=== PATIENT | female | born 1970 | race Caucasian/White ===

== ENCOUNTER 2016-11-17 20:25 | Emergency (ER) | payer OTHER ==
[2016-11-17 20:37] VITALS: BP 109/58; BMI 29.0
--- NOTE | 2016-11-17 20:42 | DR.HIP ---
HPI - Time Seen Time seen: 20:35 - Complaint Chief Complaint:: Patient states that she was pulling the hot tub, slipped and fell backward injurng her left hip and back. She complaines of right wrist pain and left wrist pain. Severety of 10/10, quality sharp, duration since accident today PMH - PMH Past Medical History: Anxiety, Arthritis, Depression, Hypothyroidism Past Surgical History: Yes Surgical History: Appendectomy, Cholecystectomy, Hysterectomy - Family History Family Medical History: Diabetes Mellitus, Cancer, [place], Coronary Artery Disease, Heart Failure, Hypertension - Social History Do you use any recreational Drugs:: No ROS - Review of Systems Eyes: No Symptoms Reported ENTM: No Symptoms Reported Respiratoy: No Symptoms Reported Cardiovascular: No Symptoms Reported PE - Vital Signs Vitals: Temperature 98.5 F Pulse Rate 72 Respiratory Rate 20 Blood Pressure [Right Arm] 119/60 Blood Pressure [Left Arm] 144/69 Blood Pressure 109/58 O2 Sat by Pulse Oximetry 94 - General Limitations: No Limitations General Appearance: Alert, In No Apparent Distress - Head Head Exam: Normal Inspection, Atraumatic - ENT ENT Exam: Normal Exam, Normal Oropharynx - Neck Neck Exam: Normal Inspection, Full ROM - Chest Chest Inspection: Normal Inspection - Respiratory Respiratory Exam: Normal Lung Sounds Bilat Respiratory Exam: Bilateral Clear to Auscultation - Cardiovascular Cardiovascular Exam: Regular Rate, Normal Rhythm - Abdominal Exam Abdominal Exam: Normal Inspection Abdominal Tenderness: negative: RUQ, RLQ, LUQ, LLQ, Epigastrium, Suprapubic, Diffuse, Mild, Moderate, Severe, Other - Extremities Extremities Exam: Normal Inspection, Full ROM - Lower Extremities Hip/Pelvis Exam: Normal Inspection, Tenderness (lefrt). negative: Deformity, Crepitus, Dislocation Upper Leg Exam: Normal Inspection Knee Exam: Normal Inspection Lower Leg Exam: Normal Inspection Ankle Exam: Normal Inspection Foot/Toe Exam: Normal Inspection Neurovascular/Tendon Exam: Normal Capillary Refill - Back Back Exam: Normal Inspection, Tenderness - Neurologic Neurological Exam: Alert, Oriented X3, CN II-XII Intact - Skin Skin Exam: Warm, Dry, Intact ROR - XRAY XRAY Interpreted by: Radiologist (CT C-spine;T-spine: Vertebral body heights are normal. Cervicothoracic junction and throacolumbar junctions are intact. There is minimal multilevel mild disk degenerative change and facet arthropathy. There is no cortical lucency or malalignment. Spinal canal is patent. Chest shows no acut4e abnormality. Chest No acute chest process CT Pelvis: Old healed right inferior pubic ramus fracture noted. There is minimal lower spine facet arthropathy. Minimal SI joint DJD noted. The hip joints are intact without cortical lucency or malalignment or malalignment. Minimal symphysis pubis DJD seen. Soft tissues of the deep pelvis are grossly normal, within limits of a noncontrast study. Venous varices are seen in the anterior abdominal wall. Minimal vascular calcification noted. Impression: No acute pelvis or left hip fracture. Old right inferior pubic ramus fracture and other findings as above.) - Diagnosis Discharge Problem: Fall Qualifiers: Encounter type: initial encounter Qualified Code(s): W19.XXXA - Unspecified fall, initial encounter - Discharge Plan Condition: Stable - Follow ups/Referrals Follow ups/Referrals: Jovanna Taylor [Primary Care Provider] - 3 days - Instructions
--- NOTE | 2016-11-17 21:28 | CT ---
CT thoracic spine without contrast Indication: Left hip pain after fall. Back pain. Technique: Helical images through the thoracic spine without contrast. Coronal and sagittal reformat s provided. Findings: Vertebral body heights are normal. Cervicothoracic junction and thoracolumbar junctions ar e intact. There is minimal multilevel mild disk degenerative change and facet arthropathy. There is no cortical lucency or malalignment. Spinal canal is patent. Limited images through the soft tissues of the abdomen show minimal aortic plaque. Limited images th rough the soft tissues of the chest shows no acute abnormality. Impression: No acute chest process. Reported By:
--- NOTE | 2016-11-17 21:30 | CT ---
CT pelvis without contrast. Indication: Left hip pain after fall. Technique: Helical images through the pelvis without contrast. Coronal and sagittal reformats provid ed. Findings: Old healed right inferior pubic ramus fracture noted. There is minimal lower lumbar spine facet arthropathy. Minimal SI joint DJD noted. The hip joints are intact without cortical lucency or malalignment. Minimal symphysis pubis DJD seen. Soft tissues of the deep pelvis are grossly normal, within limits of a noncontrast study. Venous varices are seen in the anterior abdominal wall. Minim al vascular calcifications noted. Impression: 1. No acute pelvis or left hip fracture. 2. Old right inferior pubic ramus fracture and other findings as above. Reported By:
== END 2016-11-17 22:18 | disposition home or self-care (01) ==
LOC: ER 20:25
DX: M25.551 Pain in right hip (principal); W19.XXXA Unspecified fall, initial encounter
CPT/HCPCS: 72128; 73700; 99282

== ENCOUNTER 2017-01-09 07:58 | Emergency (ER) | payer OTHER ==
[2017-01-09 08:05] VITALS: BP 109/47
[2017-01-09] MEDS ORDERED: MORPHINE SULFATE INJ 4 MG IM ONE (08:16)
[2017-01-09] MEDS ORDERED: ZOFRAN INJ 4 MG VIAL IM ONE (08:16)
[2017-01-09] MEDS ORDERED: DEMEROL INJ IM ONE (08:33)
[2017-01-09] MEDS ORDERED: DEMEROL INJ ONE (08:35)
[2017-01-09] MEDS ORDERED: ZOFRAN INJ 4 MG VIAL ONE (08:35)
--- NOTE | 2017-01-09 08:38 | RAD ---
HISTORY: Injury, fall, buttock pain Study: AP pelvis Comparison: None Findings: The pelvic bones and SI joints are intact. There is an old healed fracture of the right inferior pub ic ramus present. The hip joints are preserved. The proximal femurs are intact. Calcifications in th e soft tissue adjacent to the right iliac wing likely represent old injection granulomas. IMPRESSION: No significant abnormality identified Reported By:
[2017-01-09] MEDS ORDERED: DILAUDID INJ IM ONE (08:43)
--- NOTE | 2017-01-09 08:45 | DR.EXTPAIN ---
HPI - Time seen Time seen: 08:15 - PCP Primary Care Physician: FRANKLYN FIGUEROA - HPI Comment HPI Comment: HISTORY BELOW. - Complaint/Symptoms Chief Complaint Doctor Comments: FELL, INJURY RT BUTTOCKS. HAPPEN THIS AM. NO LOC. Chief Complaint:: PT STATES " SOME ICE WAS ON THE FLOOR AND I FELL AND HIT MY BUTT". - Nurses notes reviewed Nurses Notes Review: Yes - Source History Provided: Patient - Mode of arrival Mode of Arrival: Ambulatory - Timing Onset of Chief Complaint: 01/09/17 - Context History of: Arthritis - Associated signs and symptoms Associated Signs and Symptoms: Pain, Bruising PMH - PMH Past Medical History: Yes Past Medical History: Anxiety, Arthritis, Depression, Hypothyroidism Past Surgical History: Yes Surgical History: Appendectomy, Cholecystectomy, Hysterectomy - Family History History of Family Medical Conditions: Yes Family Medical History: Diabetes Mellitus, Cancer, MS, Coronary Artery Disease, Heart Failure, Hypertension - Social History Does patient currently use any type of tobacco product: No Have you used tobacco products in the last 12 months: No Type of Tobacco Use: None Does any household member use tobacco: No Alcohol Use: None Do you use any recreational Drugs:: No Lives With: Family Lives Where: Home - infectious screening In the last 2 months have you had wt loss of >10#?: NO Have you had fever, night sweats or hemotysis?: No Have you traveled outside the country in the last 6 months?: No Isolation: Standard ROS - Review of Systems Constitutional: No Symptoms Reported Eyes: No Symptoms Reported ENTM: No Symptoms Reported, Ear Pain. negative: Nose Discharge, Nose Congestion , Throat Pain Respiratoy: No Symptoms Reported Cardiovascular: No Symptoms Reported Gastrointestinal/Abdominal: No Symptoms Reported Genitourinary: No Symptoms Reported Neurological: No Symptoms Reported Musculoskeletal: Back Pain (RT BUTTOCKS) Integumentary: Bruises Hematologic/Lymphatic: No Symptoms Reported Endocrine: No Symptoms Reported All Other Systems: Reviewed and Negative PE - Vital Signs Vitals: Temperature 99.6 F Pulse Rate 87 Respiratory Rate 20 Blood Pressure [Right Arm] 119/60 Blood Pressure [Left Arm] 144/69 Blood Pressure 109/47 O2 Sat by Pulse Oximetry 96 - General Limitations: No Limitations General Appearance: Alert - Head Head Exam: Normal Inspection - Eyes Eye exam: Normal Appearance - ENT ENT Exam: Normal External Ear Exam - Neck Neck Exam: Trachea Midline - Chest Chest Inspection: Symmetric Chest Wall Rise - Respiratory Respiratory Exam: Normal Lung Sounds Bilat Respiratory Exam: Bilateral Clear to Auscultation - Cardiovascular Cardiovascular Exam: Regular Rate, Normal Rhythm, Normal Heart Sounds - Abdominal Exam Abdominal Exam: Normal Bowel Sounds, Soft. negative: Tenderness - Extremities Extremities Exam: Other (RT BUTTOCKS PAIN AND BRUISING.) - Back Back Exam: Other (RT BUTTOCKS TENDERNESS AND BRUISING.) - Neurological Neurological Exam: Alert, Oriented X3 - Skin Skin Exam: Erythema MDM - Differential Diagnosis Differential Diagnosis: Contusion, Fracture Course - Treatment Treatment: SEE ORDER. IM PAIN. - Education/Counseling Education/Counseling: Patient, Education Educated On: Treatment, Diagnosis, Needs for Follow Up ROR - XRAY XRAY Interpreted by: Radiologist XRAY Findings: REPORT DISCUSS WITH PATIENT. - Diagnosis Discharge Problem: Pelvic pain Pelvic contusion Qualifiers: Encounter type: initial encounter Qualified Code(s): S30.0XXA - Contusion of lower back and pelvis, initial encounter - Discharge Plan Condition: Stable Prescriptions: Hydrocodone-Acet 5 mg/325 mg [[place] 5/325 mg Tab] 1 tab PO Q6H PRN #12 tab PRN Reason: Pain - Follow ups/Referrals Follow ups/Referrals: Franklyn Taylor [Primary Care Provider] - 2 days - Instructions Instructions: Musculoskeletal Pain Additional Instructions: RETURN TO ED IF WORSE.
[2017-01-09] MEDS ORDERED: CARDIZEM INJ 50 MG VIAL ONE (08:52)
[2017-01-09] MEDS ORDERED: DILAUDID INJ ONE (08:54)
[2017-01-09 09:03] VITALS: BMI 27.4
== END 2017-01-09 09:24 | disposition home or self-care (01) ==
LOC: ER 08:11
DX: S30.0XXA Contusion of lower back and pelvis, initial encounter (principal); R10.2 Pelvic and perineal pain; W19.XXXA Unspecified fall, initial encounter; Y92.9 Unspecified place or not applicable
CPT/HCPCS: 72170; 96372; 99282; J1170; J2175; J2405; J3490

== ENCOUNTER → 2017-04-06 | Outpatient (CLI) | payer OTHER ==
[2017-04-06 10:40] LABS: BASOPHILS % (AUTO) 0.2 % (0.2-1.0); HEMATOCRIT 35.3 % (36.0-47.0); HEMOGLOBIN 12.1 g/dL (12.0-16.0); LYMPHOCYTES # (AUTO) 1.6 X10^3/uL (1.3-2.9); LYMPHOCYTES % (AUTO) 44.4 % (21.0-51.0); MEAN CORPUSCULAR HEMOGLOBIN 32.1 pg (27.0-34.0); MEAN CORPUSCULAR HGB CONC 34.4 g/dL (33.0-35.0); MEAN CORPUSCULAR VOLUME 93.4 fL (80.0-100.0); MEAN PLATELET VOLUME 9.5 fL (7.4-11.0); MONOCYTES # (AUTO) 0.4 x10^3/uL (0.3-0.8); MONOCYTES % (AUTO) 10.8 % (0.0-13.0); NEUTROPHILS # (AUTO) 1.6 x10^3/uL (2.2-4.8); NEUTROPHILS % (AUTO) 43.6 % (42.0-75.0); PLATELET COUNT 146 X10^3/uL (150.0-450.0); RED BLOOD COUNT 3.78 X10^6/uL (3.5-5.4); RED CELL DISTRIBUTION WIDTH 13.1 % (11.6-16.5); WHITE BLOOD COUNT 3.6 X10^3/uL (3.6-10.0)
[2017-04-06 10:56] LABS: ALANINE AMINOTRANSFERASE 158 Units/L (12-78); ALBUMIN 3.4 g/dL (3.4-5.0); ALKALINE PHOSPHATASE 250 Units/L (46-116); ASPARTATE AMINO TRANSFERASE 82 Units/L (15-37); BLOOD UREA NITROGEN 12 mg/dL (7-18); CALCIUM 8.8 mg/dL (8.5-10.1); CHLORIDE 104 mmol/L (98-107); CHOL/HDL RATIO 5.1 (0.0-5.0); CHOLESTEROL 265 mg/dL (0-200); CREATININE 0.76 mg/dL (0.55-1.02); HDL CHOLESTEROL 52 mg/dL (40-60); SODIUM 141 mmol/L (136-145); TOTAL PROTEIN 7.5 g/dL (6.4-8.2); TRIGLYCERIDES 238 mg/dL (0-150); TSH (3RD GENERATION) 0.194 uIU/mL (0.358-3.74); eGFR BLACK RACES > 60 (>60); eGFR NON BLACK RACES > 60 (>60)
--- NOTE | 2017-04-06 16:53 | MG ---
Examination: Bilateral screening mammogram. Clinical history: Routine screening. Technique: Digital CC and MLO views of both breasts were obtained. Computer aided detection analysis was performed and used during the interpretation. Comparison: 10/04/2010. Findings: The breasts are heterogeneously dense, reducing the sensitivity of mammography. Benign-appearing calc ifications are noted in the breasts bilaterally. No suspicious mass, area of architectural distortion or suspicious cluster of microcalcifications is noted. Impression: 1. No mammographic evidence of malignancy. BI-RADS category 2-benign findings. Recommend routine annual screening mammogram. Diagnostic CAD was utilized and reviewed. * 0 (ZERO) - ASSESSMENT INCOMPLETE; ADDITIONAL IMAGING IS NEEDED. * 0C - ASSESSMENT INCOMPLETE, NEEDS ADDITIONAL IMAGING EVALUATION AND/OR PRIOR MAMMOGRAMS FOR COMPARI SON. * 1/1 (ONE) - NEGATIVE. * 2/II (TWO) - BENIGN FINDINGS. * 3/III (THREE) - PROBABLY BENIGN FINDING; SHORT INTERVAL FOLLOW-UP SUGGESTED. * 4/IV (FOUR) - SUSPICIOUS ABNORMALITY; BIOPSY SHOULD BE CONSIDERED. * 5/V - HIGHLY SUSPICIOUS OF MALIGNANCY; BIOPSY SHOULD BE PERFORMED. * 6/IV - KNOWN BIOPSY PROVEN MALIGNANCY-APPROPRIATE ACTION SHOULD BE TAKEN. A NEGATIVE X-RAY REPORT SHOULD NOT DELAY BIOPSY IF A DOMINANT OR CLINICALLY SUSPICIOUS MASS IS PRESENT; 4 TO 8 PERCENT OF CANCERS ARE NOT IDENTIFIED BY X-RAY. A NEGATIVE REPORT MAY REINFORCE THE CLINICAL IMPRESSION. ADENOSIS AND DENSE BREASTS MAY OBSCURE AN UNDERLYING NEOPLASM. Reported By:
--- NOTE | 2017-04-10 11:15 | US ---
RIGHT UPPER QUADRANT ULTRASOUND HISTORY: Lupus. Elevated liver enzymes. Comparison: None Technique: Multiple jamison scale and color flow Doppler images of the right upper quadrant were obtaine d. Findings: Overall study is limited by overlying bowel gas. The liver is increased in echogenicity. No focal ma ss. No intrahepatic bile duct dilatation. Gallbladder absent. The common bile duct measures 3 mm. The right kidney measures 8.7 cm. No hydronephrosis or renal masses. The pancreas is obscured by ov erlying bowel gas. IMPRESSION: 1. Hepatic steatosis Reported By:
== END | disposition home or self-care (01) | DRG 951 ==
LOC: RAD 10:15
PROVIDERS: ATTEND Internal Medicine
DX: Z12.31 Encounter for screening mammogram for malignant neoplasm of breast (principal); R94.5 Abnormal results of liver function studies; M05.79 Rheumatoid arthritis with rheumatoid factor of multiple sites without organ or systems involvement; E03.8 Other specified hypothyroidism; E55.9 Vitamin D deficiency, unspecified; N28.89 Other specified disorders of kidney and ureter
CPT/HCPCS: 36415; 76705; 77067; 80053; 80061; 82306; 82607; 84439; 84443; 85025

== ENCOUNTER 2018-03-09 08:29 | Inpatient (IN) ==
[2018-03-09 08:45] VITALS: BMI 29.0
[2018-03-09] MEDS ORDERED: NS 1000 ML 1,000 ML IV ONE ×2 (09:10→10:00)
--- NOTE | 2018-03-09 09:14 | DR.NAUSEAF ---
HPI Time Seen Time Seen by Provider: 03/09/18 08:59 Primary Care Physician Primary Care Physician: DR. NOLAND HPI Comment HPI Comment: GETTING WORSE. Complaints Chief Complaint Doctors Comments: GENERALIZE BODY ACHES TIMES ONE WEEK. Chief Complaint:: PATIENT STATED THAT SHE IS HURTING ALL OVER AND FEELS LIKE SHE IS ABOUT TO HAVE A SEIZURE. PATIENT IS FLUSHED ALL OVER AND WARM TO THE TOUCH. PATIENT STATES THAT SHE IS HURTING FROM HER NECK TO THE BACK OF HER SKULL. SHE HAS BEEN SICK ALL WEEK AND SEEN HER PCP ON LAURA. AND HAVE LABS DRAWN BUT HAVE NOT HEARD BACK FROM HER DOCTOR WITH THE RESULTS. Source History Provided: Patient Mode of Arrival Mode of Arrival: EMS Timing Onset of Chief Complaint: 03/07/18 Context Onset: Spontaneous Recent: None History of: None Associated Signs and Symptoms Abdominal Pain Quality: Cramping Abdominal Pain Location: Diffuse Symptoms: Abdominal Pain PMH PMH Past Medical History: Yes Past Medical History: Anxiety, Arthritis, Depression, Hypothyroidism and Seizures Past Medical History Comment: MS, ADDISONS, MYASTHENIA GRAVIS Past Surgical History: Yes Surgical History: Appendectomy, Cholecystectomy and Hysterectomy Family History History of Family Medical Conditions: Yes Family Medical History: Diabetes Mellitus, Cancer, MS, Coronary Artery Disease, Heart Failure and Hypertension Social History Does patient currently use any type of tobacco product: No Have you used tobacco products in the last 12 months: No Type of Tobacco Use: None Does any household member use tobacco: No Alcohol Use: None Do you use any recreational Drugs:: No Lives With: Family Lives Where: Home infectious screening In the last 2 months have you had wt loss of >10#?: NO Have you had fever, night sweats or hemotysis?: No Have you traveled outside the country in the last 6 months?: No Isolation: Standard ROS Review of Systems Constitutional: Weakness and Fatigue Eyes: No Symptoms Reported ENTM: Nose Pain Respiratoy: Non-Productive Cough Cardiovascular: No Symptoms Reported Gastrointestinal/Abdominal: Abdominal Pain and Nausea Genitourinary: No Symptoms Reported Neurological: Weakness Musculoskeletal: Muscle Pain Integumentary: No Symptoms Reported Hematologic/Lymphatic: Easy Bleeding and Easy Bruising Endocrine: Decreased Appetite; negative Flushing Psychiatric: No Symptoms Reported All Other Systems: Reviewed and Negative PE Vital Signs Vitals: Temperature 98.3 F Pulse Rate [Right Brachial] 91 Pulse Rate 70 Respiratory Rate 18 Blood Pressure [Left Calf] 140/66 Blood Pressure [Right Arm] 145/71 Blood Pressure [Left Arm] 118/62 Blood Pressure 143/72 O2 Sat by Pulse Oximetry 98 General Limitations: No Limitations General Appearance: Alert Head Head Exam: Atraumatic and Normocephalic Eyes Eye exam: PERRL ENT ENT Exam: Normal External Ear Exam Neck Neck Exam: Normal Inspection and Trachea Midline; negative Tenderness, Meningismus and Lymphadenopathy Chest Chest Inspection: Symmetric Chest Wall Rise Respiratory Respiratory Exam: Normal Lung Sounds Bilat Respiratory Exam: Bilateral: Rales and Bilateral: Rhonchi, Left: Rales and Lower: Rales and Lower: Rhonchi Cardiovascular Cardiovascular Exam: Regular Rate and Normal Rhythm Abdominal Exam Abdominal Exam: Normal Bowel Sounds, Soft and Tenderness Abdominal Tenderness: Diffuse Rectal Rectal Exam: Deferred External Exam: Female: Deferred MDM Differential Diagnosis Differential Diagnosis: Considerations may Include:: Bowel Obstruction, Gastroenteritis, Pancreatitis, PUD, Urinary Tract Infection, Urolithiasis and Other (PNEUMONIA.) Differential Diagnosis Comment: ADDISONS DISEASE, MS, MYAATHENIA GRAVIS COURSE Treatment Treatment: SEE ORDERS. Education/Counseling Education/Counseling: Patient Educated On: Diagnosis ROR Labs Reviewed Laboratory Results Reviewed?: Yes Result Diagrams: 03/13/18 05:45 03/13/18 05:45 Laboratory: 03/09/18 15:18 Blood Blood Culture - Final 03/09/18 15:09 Blood Blood Culture - Final 03/09/18 09:40 Blood Blood Culture - Final 03/09/18 09:27 Blood Blood Culture - Final 03/09/18 15:51 Sputum - Expectorated Sputum Sputum Culture - Final 03/09/18 15:51 Sputum - Expectorated Sputum - Final WBC 3.5 X10^3/uL (3.6-10.0) L 03/13/18 05:45 RBC 3.10 X10^6/uL (3.5-5.4) L 03/13/18 05:45 Hgb 10.1 g/dL (12.0-16.0) L 03/13/18 05:45 Hct 28.9 % (36.0-47.0) L 03/13/18 05:45 MCV 93.2 fL (80.0-100.0) 03/13/18 05:45 MCH 32.5 pg (27.0-34.0) 03/13/18 05:45 MCHC 34.9 g/dL (33.0-35.0) 03/13/18 05:45 RDW 14.0 % (11.6-16.5) 03/13/18 05:45 Plt Count 128 X10^3/uL (150.0-450.0) L 03/13/18 05:45 Plt Count Comment Decreased (ADEQUATE) A 03/12/18 05:20 MPV 9.9 fL (7.4-11.0) 03/13/18 05:45 Neut % (Auto) 40.6 % (42.0-75.0) L 03/13/18 05:45 Lymph % (Auto) 51.4 % (21.0-51.0) H 03/13/18 05:45 [place] % (Auto) 6.2 % (0.0-13.0) 03/13/18 05:45 Eos % (Auto) 1.2 % (0.9-2.9) 03/13/18 05:45 Baso % (Auto) 0.6 % (0.2-1.0) 03/13/18 05:45 Neut # (Auto) 1.4 x10^3/uL (2.2-4.8) L 03/13/18 05:45 Lymph # (Auto) 1.8 X10^3/uL (1.3-2.9) 03/13/18 05:45 [place] # (Auto) 0.2 x10^3/uL (0.3-0.8) L 03/13/18 05:45 Eos # (Auto) 0.0 x10^3/uL (0.0-0.2) 03/13/18 05:45 Baso # (Auto) 0.0 X10^3/uL (0.0-0.1) 03/13/18 05:45 Absolute Nucleated RBC 0.0 /100WBC 03/13/18 05:45 Plt Clumps, EDTA Rare 03/12/18 05:20 Plt Morphology Comment Normal (NORMAL) 03/12/18 05:20 RBC Morphology Normal (NORMAL) 03/12/18 05:20 ESR 35 MM/HOUR (0-20) H 03/09/18 09:40 Sodium 143 mmol/L (136-145) 03/13/18 05:45 Corrected Sodium 144 mmol/L (136-145) 03/13/18 05:45 Potassium 4.1 mmol/L (3.5-5.1) 03/13/18 05:45 Chloride 106 mmol/L (98-107) 03/13/18 05:45 Carbon Dioxide 25.2 mmol/L (21-32) 03/13/18 05:45 BUN 9 mg/dL (7-18) 03/13/18 05:45 Creatinine 0.90 mg/dL (0.55-1.02) 03/13/18 05:45 Est GFR (MDRD) Af Amer > 60 (>60) 03/13/18 05:45 Est GFR (MDRD) Non-Af > 60 (>60) 03/13/18 05:45 Glucose 134 mg/dL (65-99) H 03/13/18 05:45 Lactic Acid 1.3 mmol/L (0.4-2.0) 03/09/18 09:40 Calcium 8.2 mg/dL (8.5-10.1) L 03/13/18 05:45 Corrected Calcium 9.3 mg/dL (8.5-10.1) 03/13/18 05:45 Magnesium 1.8 mg/dL (1.7-2.9) 03/10/18 05:20 Total Bilirubin 0.20 mg/dL (0.2-1.0) 03/13/18 05:45 AST 11 Units/L (15-37) L 03/13/18 05:45 ALT 21 Units/L (12-78) 03/13/18 05:45 Alkaline Phosphatase 103 Units/L (46-116) 03/13/18 05:45 Total Protein 6.6 g/dL (6.4-8.2) 03/13/18 05:45 Albumin 2.6 g/dL (3.4-5.0) L 03/13/18 05:45 Globulin 4.0 g/dL (2.5-4.5) 03/13/18 05:45 Albumin/Globulin Ratio 0.7 Ratio (1.1-2.1) L 03/13/18 05:45 Influenza Type A (PCR) Negative (NEGATIVE) 03/09/18 09:09 Influenza Type B (PCR) Negative (NEGATIVE) 03/09/18 09:09 S. pyogenes (TEM-PCR) Not detected (NOT DETECT) 03/09/18 09:09 XRAY XRAY Interpreted by: Radiologist XRAY Findings: REPORT NOTED. Instructions Instructions: Community-Acquired Pneumonia, Adult, [id number] Forms: Patient Portal
[2018-03-09] MEDS ORDERED: NS 1000 ML 1,000 ML ONE ×2 (09:18→10:44)
[2018-03-09 09:49] LABS: BASOPHILS % (AUTO) 0.1 % (0.2-1.0); EOSINOPHILS % (AUTO) 0.1 % (0.9-2.9); HEMOGLOBIN 11.7 g/dL (12.0-16.0); LYMPHOCYTES # (AUTO) 1.1 X10^3/uL (1.3-2.9); LYMPHOCYTES % (AUTO) 12.7 % (21.0-51.0); MEAN CORPUSCULAR HEMOGLOBIN 32.2 pg (27.0-34.0); MEAN CORPUSCULAR HGB CONC 34.6 g/dL (33.0-35.0); MEAN CORPUSCULAR VOLUME 93.1 fL (80.0-100.0); MEAN PLATELET VOLUME 10.2 fL (7.4-11.0); MONOCYTES # (AUTO) 0.5 x10^3/uL (0.3-0.8); MONOCYTES % (AUTO) 5.9 % (0.0-13.0); NEUTROPHILS # (AUTO) 6.8 x10^3/uL (2.2-4.8); NEUTROPHILS % (AUTO) 81.2 % (42.0-75.0); PLATELET COUNT 110 X10^3/uL (150.0-450.0); RED BLOOD COUNT 3.65 X10^6/uL (3.5-5.4); RED CELL DISTRIBUTION WIDTH 14.4 % (11.6-16.5); WHITE BLOOD COUNT 8.4 X10^3/uL (3.6-10.0)
[2018-03-09 10:03] LABS: STREP A BY PCR NOT DETECTED (NOT DETECT)
[2018-03-09 10:08] LABS: ALANINE AMINOTRANSFERASE 39 Units/L (12-78); ALBUMIN 3.3 g/dL (3.4-5.0); ALKALINE PHOSPHATASE 143 Units/L (46-116); ASPARTATE AMINO TRANSFERASE 51 Units/L (15-37); BLOOD UREA NITROGEN 13 mg/dL (7-18); CALCIUM 8.2 mg/dL (8.5-10.1); CARBON DIOXIDE 22.3 mmol/L (21-32); CHLORIDE 102 mmol/L (98-107); COR CA(FOR HYPOALB) 8.8 mg/dL (8.5-10.1); COR NA(FOR HYPERGLY) 135 mmol/L (136-145); CREATININE 0.88 mg/dL (0.55-1.02); SODIUM 135 mmol/L (136-145); TOTAL PROTEIN 7.5 g/dL (6.4-8.2); eGFR NON BLACK RACES > 60 (>60)
[2018-03-09 10:15] LABS: LACTIC ACID 1.3 mmol/L (0.4-2.0)
[2018-03-09] MEDS ORDERED: PHENERGAN INJ 25 MG IV ONE (10:17)
[2018-03-09] MEDS ORDERED: DILAUDID INJ IVP ONE (10:17)
[2018-03-09] MEDS ORDERED: PHENERGAN INJ 25 MG ONE (10:19)
[2018-03-09] MEDS ORDERED: DILAUDID INJ ONE (10:19)
[2018-03-09 10:44] LABS: ERYTHROCYTE SEDIMENTATION RATE 35 MM/HOUR (0-20)
--- NOTE | 2018-03-09 13:45 | RAD ---
HISTORY: Fever Study: Single view of the chest. Comparison: None. Findings: Streaky airspace opacities involving the mid to lower left lung in a somewhat perihilar distribution. No dense consolidations. Osseous structures demonstrate no acute abnormality. IMPRESSION: 1. Streaky airspace opacities throughout the left lung concerning for infection. Reported By:
--- NOTE | 2018-03-09 13:53 | CT ---
CT OF THE ABDOMEN AND PELVIS WITHOUT CONTRAST HISTORY: Abdominal pain with nausea Comparison: None Technique: Multiple axial images of the abdomen and pelvis were obtained from the lung bases to the pubic symphy sis without the administration of IV contrast. Dose reduction techniques including Automated Exposure Control (AEC) and adjustment of mA and kV were utlized. Findings: The heart is normal in size. There is no pericardial effusion. Streaky airspace disease involving the left lung.1 The sensitivity for focal lesion detection within the solid abdominal viscera is diminished without t he use of IV contrast. Liver and spleen are normal in size, and contour. No focal lesions. No ductal dilitation. Gallbladder absent. The pancreas is unremarkable. Adrenal glands are normal. Kidneys are normal in contour witho ut hydronephrosis or nephrolithiasis. No bowel obstruction or inflammation. No abnormal appearing mesenteric or retroperitoneal lymph node s. No free fluid or fluid collections. The bladder is normal in appearance. Uterus absent. The oblong hypoattenuating structure along the an terior aspect of the right psoas muscle on series 3, image 61 measuring 2.2 cm which is stable since 2013 although slightly enlarged since 2010 where measured 1.5 cm. No aggressive osseous lesions. IMPRESSION: 1. Findings suggestive of acute infection involving left lung. 2. Hypoattenuating structure along the anterior aspect of the right psoas inferiorly. This is nonspec ific although most certainly benign given its near stability since 2010. Differential considerations are wide and include lymph node, lymphatic malformation or possibly peritoneal inclusion cyst as frances ent has had pelvic surgery in the past. Again, secondary to its stability, this is likely of little c linical significance. Reported By:
[2018-03-09] MEDS ORDERED: TUSSIONEX PENNKINETIC SUSP PO PRN (14:52)
[2018-03-09] MEDS ORDERED: NS 1/2 1000 ML IV 1,000 ML IV ONE (15:11)
[2018-03-09] MEDS: NS 1/2 1000 ML IV 1,000 ML IV SCH (15:27)
[2018-03-09] MEDS: LEVAQUIN PREMIX IV 750 MG 750 MG/150 ML BAG IV SCH (15:27)
[2018-03-09] MEDS: ZOFRAN INJ 4 MG VIAL IVP PRN (15:27)
[2018-03-09] MEDS: DILAUDID INJ IVP PRN (15:28)
[2018-03-09] MEDS: ROBITUSSIN DM PO SCH ×2 (16:10→22:00)
[2018-03-09] MEDS: DUONEB 0.5 MG/3 MG NEB PRN ×2 (17:06→21:19)
[2018-03-10] MEDS ORDERED: NS 1/2 1000 ML IV 1,000 ML IV ONE ×2 (06:05→20:17)
[2018-03-10] MEDS: NS 1/2 1000 ML IV 1,000 ML IV SCH ×2 (06:13→21:21)
[2018-03-10 06:36] LABS: BASOPHILS % (AUTO) 0.1 % (0.2-1.0); EOSINOPHILS % (AUTO) 0.4 % (0.9-2.9); HEMATOCRIT 28.1 % (36.0-47.0); HEMOGLOBIN 9.7 g/dL (12.0-16.0); LYMPHOCYTES # (AUTO) 1.6 X10^3/uL (1.3-2.9); LYMPHOCYTES % (AUTO) 27.2 % (21.0-51.0); MEAN CORPUSCULAR HEMOGLOBIN 32.5 pg (27.0-34.0); MEAN CORPUSCULAR HGB CONC 34.5 g/dL (33.0-35.0); MEAN CORPUSCULAR VOLUME 94.4 fL (80.0-100.0); MEAN PLATELET VOLUME 11.1 fL (7.4-11.0); MONOCYTES # (AUTO) 0.4 x10^3/uL (0.3-0.8); MONOCYTES % (AUTO) 6.2 % (0.0-13.0); NEUTROPHILS # (AUTO) 3.9 x10^3/uL (2.2-4.8); NEUTROPHILS % (AUTO) 66.1 % (42.0-75.0); PLATELET COUNT 83 X10^3/uL (150.0-450.0); RED BLOOD COUNT 2.98 X10^6/uL (3.5-5.4); RED CELL DISTRIBUTION WIDTH 14.4 % (11.6-16.5); WHITE BLOOD COUNT 5.9 X10^3/uL (3.6-10.0)
[2018-03-10 06:55] LABS: ALANINE AMINOTRANSFERASE 35 Units/L (12-78); ALBUMIN 2.6 g/dL (3.4-5.0); ALKALINE PHOSPHATASE 114 Units/L (46-116); ASPARTATE AMINO TRANSFERASE 25 Units/L (15-37); BLOOD UREA NITROGEN 14 mg/dL (7-18); CALCIUM 7.7 mg/dL (8.5-10.1); CARBON DIOXIDE 26.4 mmol/L (21-32); CHLORIDE 103 mmol/L (98-107); COR CA(FOR HYPOALB) 8.8 mg/dL (8.5-10.1); COR NA(FOR HYPERGLY) 138 mmol/L (136-145); CREATININE 0.77 mg/dL (0.55-1.02); SODIUM 138 mmol/L (136-145); TOTAL PROTEIN 6.4 g/dL (6.4-8.2); eGFR NON BLACK RACES > 60 (>60)
[2018-03-10] MEDS ORDERED: KLOR-CON PO PRN (07:58)
[2018-03-10] MEDS ORDERED: POTASSIUM CHLORIDE LIQ 20 MEQ UDC PO PRN (07:58)
[2018-03-10] MEDS ORDERED: MICRO K EXTEN CAP 10 MEQ PO PRN (07:58)
[2018-03-10] MEDS ORDERED: POTASSIUM CHL 40 MEQ/NS 0.45% 500 ML IV PRN (07:58)
[2018-03-10] MEDS ORDERED: K-DUR TAB 20 MEQ PO PRN (07:58)
[2018-03-10] MEDS ORDERED: K-RIDER 10 MEQ/NS 100 ML 10 MEQ/100 ML BAG IV PRN (07:58)
[2018-03-10] MEDS ORDERED: POTASSIUM CHL 60 MEQ/NS 0.45% 500 ML IV PRN (07:58)
[2018-03-10] MEDS: ROBITUSSIN DM PO SCH ×4 (08:25→21:20)
[2018-03-10] MEDS: LEVAQUIN PREMIX IV 750 MG 750 MG/150 ML BAG IV SCH (08:25)
[2018-03-10] MEDS: DILAUDID INJ IVP PRN ×4 (08:26→21:22)
[2018-03-10] MEDS: DUONEB 0.5 MG/3 MG NEB PRN ×3 (09:28→16:55)
--- NOTE | 2018-03-10 09:46 | RAD ---
Examination: Portable AP chest History: Chest pain, follow-up infiltrate Comparison 03/09/2018 Findings: Continued normal heart size. No change in the diffuse interstitial infiltrate throughout th e left lung. There is no evidence for complicating pneumothorax or developing pleural effusion. Impression: Persistent infiltrate left lung most consistent with pneumonia. Asymmetric pulmonary dinora a is considered less likely. Reported By:
[2018-03-10] MEDS: ZOFRAN INJ 4 MG VIAL IVP PRN ×2 (12:47→21:30)
[2018-03-11] MEDS: ROBITUSSIN DM PO SCH ×4 (09:07→22:25)
[2018-03-11] MEDS: ZOFRAN INJ 4 MG VIAL IVP PRN ×2 (09:54→16:52)
[2018-03-11] MEDS: LEVAQUIN PREMIX IV 750 MG 750 MG/150 ML BAG IV SCH (09:54)
[2018-03-11] MEDS: DILAUDID INJ IVP PRN ×3 (09:54→22:25)
[2018-03-11] MEDS: NS 1/2 1000 ML IV 1,000 ML IV SCH ×2 (11:10→16:51)
[2018-03-11] MEDS: DUONEB 0.5 MG/3 MG NEB PRN ×2 (12:13→17:13)
[2018-03-11] MEDS ORDERED: NS 1/2 1000 ML IV 1,000 ML IV ONE (16:48)
[2018-03-11] MEDS ORDERED: SOMA TAB 350 MG PO PRN (21:39)
[2018-03-11] MEDS ORDERED: ZANAFLEX PO PRN (21:39)
[2018-03-11] MEDS ORDERED: OXYCODONE 10 MG PO PRN (21:39)
[2018-03-11] MEDS ORDERED: ROXICODONE TAB 5 MG PO PRN (21:54)
[2018-03-11] MEDS: LYRICA CAP 75 MG PO SCH (22:23)
[2018-03-11] MEDS: KLONOPIN TAB 1 MG PO SCH (22:24)
[2018-03-12] MEDS: LYRICA CAP 75 MG PO SCH ×3 (05:33→22:20)
[2018-03-12] MEDS: ZOFRAN INJ 4 MG VIAL IVP PRN ×2 (05:34→13:16)
[2018-03-12] MEDS: DILAUDID INJ IVP PRN ×4 (05:34→20:16)
[2018-03-12 06:26] LABS: BASOPHILS % (AUTO) 0.7 % (0.2-1.0); EOSINOPHILS # (AUTO) 0.1 x10^3/uL (0.0-0.2); EOSINOPHILS % (AUTO) 1.4 % (0.9-2.9); HEMATOCRIT 30.6 % (36.0-47.0); HEMOGLOBIN 10.5 g/dL (12.0-16.0); LYMPHOCYTES # (AUTO) 2.3 X10^3/uL (1.3-2.9); LYMPHOCYTES % (AUTO) 38.9 % (21.0-51.0); MEAN CORPUSCULAR HEMOGLOBIN 32.1 pg (27.0-34.0); MEAN CORPUSCULAR HGB CONC 34.4 g/dL (33.0-35.0); MEAN CORPUSCULAR VOLUME 93.3 fL (80.0-100.0); MEAN PLATELET VOLUME 10.8 fL (7.4-11.0); MONOCYTES # (AUTO) 0.5 x10^3/uL (0.3-0.8); MONOCYTES % (AUTO) 8.4 % (0.0-13.0); NEUTROPHILS % (AUTO) 50.6 % (42.0-75.0); RED BLOOD COUNT 3.28 X10^6/uL (3.5-5.4); RED CELL DISTRIBUTION WIDTH 13.9 % (11.6-16.5)
[2018-03-12 06:35] LABS: PLATELET COUNT 63 X10^3/uL (150.0-450.0)
--- NOTE | 2018-03-12 06:36 | RAD ---
HISTORY: Shortness of breath, follow-up left lung infiltrate Study: Chest AP portable Comparison: 03/10/2018 Findings: The heart is within normal limits in size. The wes are normal. The right lung is clear. There is imp rovement in the left-sided perihilar interstitial infiltrates being followed. Some infiltrate remains . No pleural effusions are identified. The bony thorax is unremarkable. IMPRESSION: Improving left lung infiltrates Reported By:
[2018-03-12 06:42] LABS: ALANINE AMINOTRANSFERASE 25 Units/L (12-78); ALBUMIN 2.7 g/dL (3.4-5.0); ALKALINE PHOSPHATASE 114 Units/L (46-116); ASPARTATE AMINO TRANSFERASE 18 Units/L (15-37); BLOOD UREA NITROGEN 7 mg/dL (7-18); CALCIUM 8.2 mg/dL (8.5-10.1); CARBON DIOXIDE 23.5 mmol/L (21-32); CHLORIDE 102 mmol/L (98-107); COR CA(FOR HYPOALB) 9.2 mg/dL (8.5-10.1); COR NA(FOR HYPERGLY) 137 mmol/L (136-145); CREATININE 0.82 mg/dL (0.55-1.02); SODIUM 137 mmol/L (136-145); TOTAL PROTEIN 6.9 g/dL (6.4-8.2); eGFR NON BLACK RACES > 60 (>60)
[2018-03-12 07:25] LABS: PLATELET MORPHOLOGY COMMENT NORMAL (NORMAL)
--- NOTE | 2018-03-12 08:42 | DR.H&P ---
H&P - History & Physical for Day of: H&P Date: 03/09/18 - Chief Complaint Chief Complaint: ACHING ALL OVER, SOB, COUGH, ABDOMINAL PAIN, NAUSEA - History of Present Illness History of Present Illness: IS A 47 YEAR OLD PATIENT OF DR.RHONDA NOLAND WHO PRESENTED TO THE EMERGENCY ROOM WITH COMPLAINTS OF HURTING ALL OVER. PATIENT REPORTS THAT SHE HAS BEEN FEELING IF SHE WAS ABOUT TO HAVE A SEIZURE. SHE REPORTS PAIN TO THE NECK UP TO THE BACK OF HER MERVIN. ASSOCIATED SYMPTOMS INCLUDE SHORTNESS OF BREATH, NON-PRODUCTIVE COUGH, ABDOMINAL PAIN, AND NAUSEA. MEDICAL HISTORY INCLUDES ANXIETY, ARTHRITIS, DEPRESSION, HYPOTHYROIDISM, SEIZURES, MS, ADDISONS DISEASE, AND MYASTHENIA GRAVIS. ON ARRIVAL, VITALS WERE 103.1, 123-20-96%-126/70. LABS WERE OBTAINED. ABNORMAL LAB VALUES INCLUDE THE FOLLOWING: HGB 11.7, HCT 34.0, PLT COUNT 110, SODIUM 135, GLUCOSE 118, CALCIUM 8.2, AST 51, ALK PHOS 143, ALBUMIN 3.3. AN ABDOMEN/PELVIS CT WITHOUT CONTAST WAS OBTAINED AND REVEALED: Findings suggestive of acute infection involving left lung.Hypoattenuating structure along the anterior aspect of the right psoas inferiorly. This is nonspecific although most certainly benign given its near stability since 2010. Differential considerations are wide and include lymph node, lymphatic malformation or possibly peritoneal inclusion cyst as patient has had pelvic surgery in the past. Again, secondary to its stability, this is likely of little clinical significance. CHEST XRAY REVEALED: Streaky airspace opacities throughout the left lung concerning for infection. SHE WAS ADMITTED FOR FURTHER EVALUATION AND TREATMENT OF LEFT LOWER LOBE PNEUMONIA. SHE WAS STARTED ON THE PNEUMONIA PROTOCOL WITH LEVAQUIN 750MG IV DAILY AND RESPIRATORY TREATMENTS. WE PLAN TO FOLLOW UP WITH AM LABS AND CHEST XRAY AND CONTINUE TO MONITOR PATIENT. - Past Medical History Past Medical History: Depression, Anxiety, Hypothyroidism, Seizures, Arthritis Additional Medical History: Mitral Valve Prolapse, Pulmonary Embolism, Gall Bladder Disease, Urinary Tract Infections, Fibromyalgia, Rheumatoid Arthritis, Jim's Disease, Lupus, Cervical Cancer - Past Surgical History Surgical History: Appendectomy, Cholecystectomy, Hysterectomy Additional Surgical History: Port-a-cath - Family History Family Medical History: Diabetes Mellitus, Cancer, MA, Coronary Artery Disease, Heart Failure, Hypertension - Social History Does patient currently use any type of tobacco product: No Have you used tobacco products in the last 12 months: No Type of Tobacco Use: None Does any household member use tobacco: No Alcohol Use: None Drug Use: Prescription Drugs - Medications Home Medications: acetaminophen [From Percocet] Allergy (Verified 01/15/18 13:32) aspirin Allergy (Verified 01/15/18 13:32) codeine Allergy (Verified 01/15/18 13:32) ibuprofen [From Motrin] Allergy (Verified 01/15/18 13:32) ketorolac [From Toradol] Allergy (Verified 01/15/18 13:32) lidocaine Allergy (Verified 01/15/18 13:32) meperidine [From Demerol] Allergy (Verified 01/15/18 13:32) metoclopramide [From Reglan] Allergy (Verified 01/15/18 13:32) morphine Allergy (Verified 01/15/18 13:32) nalbuphine [From Nubain] Allergy (Verified 01/15/18 13:32) naloxone [From Narcan] Allergy (Verified 01/15/18 13:32) naproxen Allergy (Verified 01/15/18 13:32) oxycodone [From Percocet] Allergy (Verified 01/15/18 13:32) penicillin G Allergy (Verified 01/15/18 13:32) Sulfa (Sulfonamide Antibiotics) Allergy (Verified 01/15/18 13:32) macrolides and ketolides Allergy (Uncoded 01/15/18 13:32) CONTINUE taking the following medications carisoprodol 350 mg PO Q8H PRN 03/09/18 [History] oxycodone 10 mg PO Q6HR PRN 03/09/18 [History] oxymorphone 40 mg PO Q12H 03/09/18 [History] pregabalin [Lyrica] 75 mg PO TID 03/09/18 [History] rivaroxaban [Xarelto] 20 mg PO DAILY 03/09/18 [History] - Review of Systems Constitutional: Fever, Weakness, Malaise, Other (ACHING ALL OVER ) Eyes: No Symptoms Reported ENT: No Symptoms Reported Respiratory: Cough, Shortness of Breath, SOB with Excertion Cardiovascular: No Symptoms Reported Gastrointestinal: Nausea, Abdominal Pain Genitourinary: No Symptoms Reported Musculoskeletal: See HPI Skin: No Symptoms Reported Neurological: Weakness, Change in Speech - Physical Exam Vital Signs: Temperature 98.0 F Pulse Rate [Right Brachial] 53 Pulse Rate 72 Respiratory Rate 18 Blood Pressure [Left Calf] 140/66 Blood Pressure [Right Arm] 111/58 Blood Pressure [Left Arm] 116/56 Blood Pressure 143/72 O2 Sat by Pulse Oximetry 95 Oriented: Normal Eyes: Normal Ear: Normal Nose: Normal Throat: Normal Respiratory: Diminished Throughout Cardiovascular: Tachycardia. negative: S3, S4, Murmur : Normal Auscultation: Bowel Sounds: Normal Palpation: Normal Tenderness: Diffuse, Mild. negative: Rebound, Guarding, Rigidity Skin: Normal Musculoskeletal: Shoulder, Leg, Back:Lumbar, Tender Psychiatric: Normal Mood Description: Calm Affect: Normal Speech Pattern: Clear - Assessment/Plan (1) Pneumonia Qualifiers: Pneumonia type: due to unspecified organism Laterality: left Lung location: lower lobe of lung Qualified Code(s): J18.1 - Lobar pneumonia, unspecified organism Status: Acute Plan: PNEUMONIA PROTOCOL, LEVAQUIN IV, DUONEBS, TUSSIONEX, CONTINUE TO MONITOR - Allergies Allergies/Adverse Reactions: Allergies Allergy/AdvReac Type Severity Reaction Status Date / Time acetaminophen [From Percocet] Allergy Verified 01/15/18 13:32 aspirin Allergy Verified 01/15/18 13:32 codeine Allergy Verified 01/15/18 13:32 ibuprofen [From Motrin] Allergy Verified 01/15/18 13:32 ketorolac [From Toradol] Allergy Verified 01/15/18 13:32 lidocaine Allergy Verified 01/15/18 13:32 meperidine [From Demerol] Allergy Verified 01/15/18 13:32 metoclopramide [From Reglan] Allergy Verified 01/15/18 13:32 morphine Allergy Verified 01/15/18 13:32 nalbuphine [From Nubain] Allergy Verified 01/15/18 13:32 naloxone [From Narcan] Allergy Verified 01/15/18 13:32 naproxen Allergy Verified 01/15/18 13:32 oxycodone [From Percocet] Allergy Verified 01/15/18 13:32 penicillin G Allergy Verified 01/15/18 13:32 Sulfa (Sulfonamide Allergy Verified 01/15/18 13:32 Antibiotics) macrolides and ketolides Allergy Uncoded 01/15/18 13:32
[2018-03-12] MEDS: PriLOSEC PO SCH (09:55)
[2018-03-12] MEDS: ESTRACE PO SCH (09:55)
[2018-03-12] MEDS: KLONOPIN TAB 1 MG PO SCH ×2 (09:55→20:16)
[2018-03-12] MEDS: LEVAQUIN PREMIX IV 750 MG 750 MG/150 ML BAG IV SCH (09:55)
[2018-03-12] MEDS: ROBITUSSIN DM PO SCH ×4 (09:56→20:16)
[2018-03-12] MEDS: SYNTHROID 150 mcg TAB PO SCH (09:56)
[2018-03-12] MEDS: CELEXA PO SCH (09:56)
[2018-03-12] MEDS: XARELTO PO SCH (09:56)
[2018-03-12] MEDS ORDERED: NS 25 ML IV 25 ML IV ONE (10:03)
[2018-03-12] MEDS: DUONEB 0.5 MG/3 MG NEB PRN (16:56)
[2018-03-12] MEDS: PHENERGAN INJ 25 MG IM PRN (20:16)
--- NOTE | 2018-03-12 21:09 | PCM.PROG ---
Progress Note - Progress Note for Day of Date of Exam: 03/10/18 - Subjective Subjective: WAS ADMITTED FOR LEFT LOWER LOBE PNEUMONIA. TODAY, SHE IS ALERT AND ORIENTED, LYING IN BED ON MORNING ROUNDS. SHE CONTINUES WITH COMPLAINTS OF WEAKNESS, COUGH, AND SHORTNESS OF BREATH. SHE ALSO REPORTS LOWER BACK PAIN. ON EXAMINATION, HEART IS REGULAR IN RATE AND RHYTHM. BILATERAL LUNGS ARE NOTED WITH SCATTERED WHEEZING. ABDOMEN IS ROUND, SOFT, AND NON-TENDER WITH NORMAL BOWEL SOUNDS NOTED IN ALL QUADRANTS. HER VITALS THIS MORNING ARE 99.3-93-22-97%-111/90. LABS WERE OBTAINED. ABNORMAL LAB VALUES INCLUDE THE FOLLOWING: RBC 2.98, HGB 9.7, HCT 28.1, PLT COUNT 83, POTASSIUM 3.4, GLUCOSE 111, CALCIUM 7.7, ALBUMIN 2.6. TODAYS CHEST XRAY REVEALED: Persistent infiltrate left lung most consistent with pneumonia. Asymmetric pulmonary edema is considered less likely. SHE IS CURRENTLY RECEIVING IV LEVAQUIN AND DUONEBS. WE WILL CONTINUE WITH CURRENT PLAN OF CARE TODAY. WE WILL FOLLOW UP WITH AM LABS AND CONTINUE TO MONITOR PATIENT. - Past Medical Family Social History Past Med/Fam/Surg Hx: No changes since H&P Allergies: Allergies acetaminophen [From Percocet] Allergy (Verified 01/15/18 13:32) aspirin Allergy (Verified 01/15/18 13:32) codeine Allergy (Verified 01/15/18 13:32) ibuprofen [From Motrin] Allergy (Verified 01/15/18 13:32) ketorolac [From Toradol] Allergy (Verified 01/15/18 13:32) lidocaine Allergy (Verified 01/15/18 13:32) meperidine [From Demerol] Allergy (Verified 01/15/18 13:32) metoclopramide [From Reglan] Allergy (Verified 01/15/18 13:32) morphine Allergy (Verified 01/15/18 13:32) nalbuphine [From Nubain] Allergy (Verified 01/15/18 13:32) naloxone [From Narcan] Allergy (Verified 01/15/18 13:32) naproxen Allergy (Verified 01/15/18 13:32) oxycodone [From Percocet] Allergy (Verified 01/15/18 13:32) penicillin G Allergy (Verified 01/15/18 13:32) Sulfa (Sulfonamide Antibiotics) Allergy (Verified 01/15/18 13:32) macrolides and ketolides Allergy (Uncoded 01/15/18 13:32) - Review of Systems ROS: No change since H&P - Vital Signs and I&O's Vital Signs: Temperature 98.4 F Pulse Rate [Right Brachial] 77 Pulse Rate 70 Respiratory Rate 20 Blood Pressure [Left Calf] 140/66 Blood Pressure [Right Arm] 123/60 Blood Pressure [Left Arm] 118/62 Blood Pressure 143/72 O2 Sat by Pulse Oximetry 93 Intake and Output: Intake & Output 03/10/18 03/11/18 03/12/18 03/13/18 11:59 11:59 11:59 11:59 Intake Total 720 / 720 3100 / 3100 2660 / 2660 960 / 960 Output Total 0 / 0 Balance 720 / 720 3100 / 3100 2660 / 2660 960 / 960 - Physical Exam Oriented: Normal Eyes: Normal Ear: Normal Nose: Normal Throat: Normal Respiratory: Generalized, Wheezes Cardiovascular: Tachycardia, Bradycardia. negative: S3, S4, Murmur : Normal Auscultation: Bowel Sounds: Normal Palpation: Normal Tenderness: Normal. negative: Rebound, Guarding, Rigidity Skin: Normal Musculoskeletal: Shoulder, Leg, Back:Lumbar, Tender Psychiatric: Normal Mood Description: Calm Affect: Normal Speech Pattern: Clear - Laboratory and Diagnostics Result Diagrams: 03/12/18 05:20 03/12/18 05:20 Labs: 03/09/18 15:18 Blood Blood Culture - Preliminary 03/09/18 15:09 Blood Blood Culture - Preliminary 03/09/18 09:40 Blood Blood Culture - Preliminary 03/09/18 09:27 Blood Blood Culture - Preliminary 03/09/18 15:51 Sputum - Expectorated Sputum Sputum Culture - Final 03/09/18 15:51 Sputum - Expectorated Sputum - Final Laboratory WBC 6.0 X10^3/uL (3.6-10.0) 03/12/18 05:20 RBC 3.28 X10^6/uL (3.5-5.4) L 03/12/18 05:20 Hgb 10.5 g/dL (12.0-16.0) L 03/12/18 05:20 Hct 30.6 % (36.0-47.0) L 03/12/18 05:20 MCV 93.3 fL (80.0-100.0) 03/12/18 05:20 MCH 32.1 pg (27.0-34.0) 03/12/18 05:20 MCHC 34.4 g/dL (33.0-35.0) 03/12/18 05:20 RDW 13.9 % (11.6-16.5) 03/12/18 05:20 Plt Count 63 X10^3/uL (150.0-450.0) L 03/12/18 05:20 Plt Count Comment Decreased (ADEQUATE) A 03/12/18 05:20 MPV 10.8 fL (7.4-11.0) 03/12/18 05:20 Neut % (Auto) 50.6 % (42.0-75.0) 03/12/18 05:20 Lymph % (Auto) 38.9 % (21.0-51.0) 03/12/18 05:20 [place] % (Auto) 8.4 % (0.0-13.0) 03/12/18 05:20 Eos % (Auto) 1.4 % (0.9-2.9) 03/12/18 05:20 Baso % (Auto) 0.7 % (0.2-1.0) 03/12/18 05:20 Neut # (Auto) 3.0 x10^3/uL (2.2-4.8) 03/12/18 05:20 Lymph # (Auto) 2.3 X10^3/uL (1.3-2.9) 03/12/18 05:20 [place] # (Auto) 0.5 x10^3/uL (0.3-0.8) 03/12/18 05:20 Eos # (Auto) 0.1 x10^3/uL (0.0-0.2) 03/12/18 05:20 Baso # (Auto) 0.0 X10^3/uL (0.0-0.1) 03/12/18 05:20 Absolute Nucleated RBC 0.3 /100WBC 03/12/18 05:20 Plt Clumps, EDTA Rare 03/12/18 05:20 Plt Morphology Comment Normal (NORMAL) 03/12/18 05:20 RBC Morphology Normal (NORMAL) 03/12/18 05:20 ESR 35 MM/HOUR (0-20) H 03/09/18 09:40 Sodium 137 mmol/L (136-145) 03/12/18 05:20 Corrected Sodium 137 mmol/L (136-145) 03/12/18 05:20 Potassium 4.0 mmol/L (3.5-5.1) 03/12/18 05:20 Chloride 102 mmol/L (98-107) 03/12/18 05:20 Carbon Dioxide 23.5 mmol/L (21-32) 03/12/18 05:20 BUN 7 mg/dL (7-18) 03/12/18 05:20 Creatinine 0.82 mg/dL (0.55-1.02) 03/12/18 05:20 Est GFR (MDRD) Af Amer > 60 (>60) 03/12/18 05:20 Est GFR (MDRD) Non-Af > 60 (>60) 03/12/18 05:20 Glucose 120 mg/dL (65-99) H 03/12/18 05:20 Lactic Acid 1.3 mmol/L (0.4-2.0) 03/09/18 09:40 Calcium 8.2 mg/dL (8.5-10.1) L 03/12/18 05:20 Corrected Calcium 9.2 mg/dL (8.5-10.1) 03/12/18 05:20 Magnesium 1.8 mg/dL (1.7-2.9) 03/10/18 05:20 Total Bilirubin 0.30 mg/dL (0.2-1.0) 03/12/18 05:20 AST 18 Units/L (15-37) 03/12/18 05:20 ALT 25 Units/L (12-78) 03/12/18 05:20 Alkaline Phosphatase 114 Units/L (46-116) 03/12/18 05:20 Total Protein 6.9 g/dL (6.4-8.2) 03/12/18 05:20 Albumin 2.7 g/dL (3.4-5.0) L 03/12/18 05:20 Globulin 4.2 g/dL (2.5-4.5) 03/12/18 05:20 Albumin/Globulin Ratio 0.6 Ratio (1.1-2.1) L 03/12/18 05:20 Influenza Type A (PCR) Negative (NEGATIVE) 03/09/18 09:09 Influenza Type B (PCR) Negative (NEGATIVE) 03/09/18 09:09 S. pyogenes (TEM-PCR) Not detected (NOT DETECT) 03/09/18 09:09 - Plan (1) Pneumonia Status: Acute Qualifiers: Pneumonia type: due to unspecified organism Laterality: left Lung location: lower lobe of lung Qualified Code(s): J18.1 - Lobar pneumonia, unspecified organism Plan: PNEUMONIA PROTOCOL, LEVAQUIN IV, DUONELARY, DARRELIONEX, CONTINUE TO MONITOR
[2018-03-13] MEDS: PHENERGAN INJ 25 MG IM PRN ×2 (02:10→10:01)
[2018-03-13] MEDS: DILAUDID INJ IVP PRN (02:10)
[2018-03-13] MEDS ORDERED: NS 1/2 1000 ML IV 1,000 ML IV ONE (02:46)
[2018-03-13] MEDS: NS 1/2 1000 ML IV 1,000 ML IV SCH (04:00)
[2018-03-13 06:22] LABS: BASOPHILS % (AUTO) 0.6 % (0.2-1.0); EOSINOPHILS % (AUTO) 1.2 % (0.9-2.9); HEMATOCRIT 28.9 % (36.0-47.0); HEMOGLOBIN 10.1 g/dL (12.0-16.0); LYMPHOCYTES # (AUTO) 1.8 X10^3/uL (1.3-2.9); LYMPHOCYTES % (AUTO) 51.4 % (21.0-51.0); MEAN CORPUSCULAR HEMOGLOBIN 32.5 pg (27.0-34.0); MEAN CORPUSCULAR HGB CONC 34.9 g/dL (33.0-35.0); MEAN CORPUSCULAR VOLUME 93.2 fL (80.0-100.0); MEAN PLATELET VOLUME 9.9 fL (7.4-11.0); MONOCYTES # (AUTO) 0.2 x10^3/uL (0.3-0.8); MONOCYTES % (AUTO) 6.2 % (0.0-13.0); NEUTROPHILS # (AUTO) 1.4 x10^3/uL (2.2-4.8); NEUTROPHILS % (AUTO) 40.6 % (42.0-75.0); PLATELET COUNT 128 X10^3/uL (150.0-450.0); WHITE BLOOD COUNT 3.5 X10^3/uL (3.6-10.0)
[2018-03-13] MEDS: LYRICA CAP 75 MG PO SCH (06:31)
--- NOTE | 2018-03-13 06:32 | RAD ---
HISTORY: Chest pain, abdominal pain, follow up left lung infiltrate Study: Chest AP portable Comparison: 03/12/2018 Findings: The heart is within normal limits in size. The wes are normal. The lungs are well inflated. The righ t lung remains clear. The previously noted left lung infiltrate appears to have resolved. No definite residual infiltrate remains. No pleural effusions are identified. The bony thorax is unremarkable IMPRESSION: Resolution of the previously noted left lung infiltrate Reported By:
[2018-03-13 06:55] LABS: ALANINE AMINOTRANSFERASE 21 Units/L (12-78); ALBUMIN 2.6 g/dL (3.4-5.0); ALKALINE PHOSPHATASE 103 Units/L (46-116); ASPARTATE AMINO TRANSFERASE 11 Units/L (15-37); BLOOD UREA NITROGEN 9 mg/dL (7-18); CALCIUM 8.2 mg/dL (8.5-10.1); CARBON DIOXIDE 25.2 mmol/L (21-32); CHLORIDE 106 mmol/L (98-107); COR CA(FOR HYPOALB) 9.3 mg/dL (8.5-10.1); COR NA(FOR HYPERGLY) 144 mmol/L (136-145); SODIUM 143 mmol/L (136-145); TOTAL PROTEIN 6.6 g/dL (6.4-8.2); eGFR NON BLACK RACES > 60 (>60)
[2018-03-13] MEDS: DUONEB 0.5 MG/3 MG NEB PRN ×2 (09:04→12:15)
[2018-03-13] MEDS: ZOFRAN INJ 4 MG VIAL IVP PRN (09:22)
[2018-03-13] MEDS: KLONOPIN TAB 1 MG PO SCH (09:59)
[2018-03-13] MEDS: ROBITUSSIN DM PO SCH ×2 (09:59→12:27)
[2018-03-13] MEDS: LEVAQUIN PREMIX IV 750 MG 750 MG/150 ML BAG IV SCH (09:59)
[2018-03-13] MEDS: XARELTO PO SCH (10:00)
[2018-03-13] MEDS: ESTRACE PO SCH (10:00)
[2018-03-13] MEDS: PriLOSEC PO SCH (10:00)
[2018-03-13] MEDS: CELEXA PO SCH (10:00)
[2018-03-13] MEDS: SYNTHROID 150 mcg TAB PO SCH (10:00)
[2018-03-13 10:50] VITALS: BP 145/71
--- NOTE | 2018-03-13 10:52 | PCM.PROG ---
Progress Note - Progress Note for Day of Date of Exam: 03/11/18 - Subjective Subjective: WAS ADMITTED FOR LEFT LOWER LOBE PNEUMONIA. TODAY, SHE IS ALERT AND ORIENTED, LYING IN BED ON MORNING ROUNDS. SHE CONTINUES WITH COMPLAINTS OF WEAKNESS, COUGH, AND SHORTNESS OF BREATH. SHE ALSO REPORTS LOWER BACK PAIN AND NAUSEA. ON EXAMINATION, HEART IS REGULAR IN RATE AND RHYTHM. BILATERAL LUNGS ARE NOTED WITH SCATTERED WHEEZING. ABDOMEN IS ROUND, SOFT, AND NON-TENDER WITH NORMAL BOWEL SOUNDS NOTED IN ALL QUADRANTS. HER VITALS THIS MORNING ARE 98.3-76-18-98%-116/56. SHE IS CURRENTLY RECEIVING IV LEVAQUIN AND DUONEBS. WE WILL CONTINUE WITH CURRENT PLAN OF CARE TODAY AND START PHENERGAN 25MG IM Q4H PRN NAUSEA AND RESUME HOME MEDICATIONS.OTHERWISE, WE WILL FOLLOW UP WITH AM LABS AND CONTINUE TO MONITOR PATIENT. - Past Medical Family Social History Past Med/Fam/Surg Hx: No changes since H&P Allergies: Allergies acetaminophen [From Percocet] Allergy (Verified 01/15/18 13:32) aspirin Allergy (Verified 01/15/18 13:32) codeine Allergy (Verified 01/15/18 13:32) ibuprofen [From Motrin] Allergy (Verified 01/15/18 13:32) ketorolac [From Toradol] Allergy (Verified 01/15/18 13:32) lidocaine Allergy (Verified 01/15/18 13:32) meperidine [From Demerol] Allergy (Verified 01/15/18 13:32) metoclopramide [From Reglan] Allergy (Verified 01/15/18 13:32) morphine Allergy (Verified 01/15/18 13:32) nalbuphine [From Nubain] Allergy (Verified 01/15/18 13:32) naloxone [From Narcan] Allergy (Verified 01/15/18 13:32) naproxen Allergy (Verified 01/15/18 13:32) oxycodone [From Percocet] Allergy (Verified 01/15/18 13:32) penicillin G Allergy (Verified 01/15/18 13:32) Sulfa (Sulfonamide Antibiotics) Allergy (Verified 01/15/18 13:32) macrolides and ketolides Allergy (Uncoded 01/15/18 13:32) - Review of Systems ROS: No change since H&P - Vital Signs and I&O's Vital Signs: Temperature 98.3 F Pulse Rate [Right Brachial] 91 Pulse Rate 70 Respiratory Rate 18 Blood Pressure [Left Calf] 140/66 Blood Pressure [Right Arm] 145/71 Blood Pressure [Left Arm] 118/62 Blood Pressure 143/72 O2 Sat by Pulse Oximetry 98 Intake and Output: Intake & Output 03/10/18 03/11/18 03/12/18 03/13/18 11:59 11:59 11:59 11:59 Intake Total 720 / 720 3100 / 3100 2660 / 2660 1200 / 1200 Output Total 0 / 0 Balance 720 / 720 3100 / 3100 2660 / 2660 1200 / 1200 - Physical Exam Oriented: Normal Eyes: Normal Ear: Normal Nose: Normal Throat: Normal Respiratory: Generalized, Wheezes Cardiovascular: Tachycardia, Bradycardia. negative: S3, S4, Murmur : Normal Auscultation: Bowel Sounds: Normal Tenderness: Normal. negative: Rebound, Guarding, Rigidity Skin: Normal Musculoskeletal: Shoulder, Leg, Back:Lumbar, Tender Psychiatric: Normal Mood Description: Calm Affect: Normal Speech Pattern: Clear - Laboratory and Diagnostics Result Diagrams: 03/13/18 05:45 03/13/18 05:45 Labs: 03/09/18 15:18 Blood Blood Culture - Preliminary 03/09/18 15:09 Blood Blood Culture - Preliminary 03/09/18 09:40 Blood Blood Culture - Preliminary 03/09/18 09:27 Blood Blood Culture - Preliminary 03/09/18 15:51 Sputum - Expectorated Sputum Sputum Culture - Final 03/09/18 15:51 Sputum - Expectorated Sputum - Final Laboratory WBC 3.5 X10^3/uL (3.6-10.0) L 03/13/18 05:45 RBC 3.10 X10^6/uL (3.5-5.4) L 03/13/18 05:45 Hgb 10.1 g/dL (12.0-16.0) L 03/13/18 05:45 Hct 28.9 % (36.0-47.0) L 03/13/18 05:45 MCV 93.2 fL (80.0-100.0) 03/13/18 05:45 MCH 32.5 pg (27.0-34.0) 03/13/18 05:45 MCHC 34.9 g/dL (33.0-35.0) 03/13/18 05:45 RDW 14.0 % (11.6-16.5) 03/13/18 05:45 Plt Count 128 X10^3/uL (150.0-450.0) L 03/13/18 05:45 Plt Count Comment Decreased (ADEQUATE) A 03/12/18 05:20 MPV 9.9 fL (7.4-11.0) 03/13/18 05:45 Neut % (Auto) 40.6 % (42.0-75.0) L 03/13/18 05:45 Lymph % (Auto) 51.4 % (21.0-51.0) H 03/13/18 05:45 [place] % (Auto) 6.2 % (0.0-13.0) 03/13/18 05:45 Eos % (Auto) 1.2 % (0.9-2.9) 03/13/18 05:45 Baso % (Auto) 0.6 % (0.2-1.0) 03/13/18 05:45 Neut # (Auto) 1.4 x10^3/uL (2.2-4.8) L 03/13/18 05:45 Lymph # (Auto) 1.8 X10^3/uL (1.3-2.9) 03/13/18 05:45 [place] # (Auto) 0.2 x10^3/uL (0.3-0.8) L 03/13/18 05:45 Eos # (Auto) 0.0 x10^3/uL (0.0-0.2) 03/13/18 05:45 Baso # (Auto) 0.0 X10^3/uL (0.0-0.1) 03/13/18 05:45 Absolute Nucleated RBC 0.0 /100WBC 03/13/18 05:45 Plt Clumps, EDTA Rare 03/12/18 05:20 Plt Morphology Comment Normal (NORMAL) 03/12/18 05:20 RBC Morphology Normal (NORMAL) 03/12/18 05:20 ESR 35 MM/HOUR (0-20) H 03/09/18 09:40 Sodium 143 mmol/L (136-145) 03/13/18 05:45 Corrected Sodium 144 mmol/L (136-145) 03/13/18 05:45 Potassium 4.1 mmol/L (3.5-5.1) 03/13/18 05:45 Chloride 106 mmol/L (98-107) 03/13/18 05:45 Carbon Dioxide 25.2 mmol/L (21-32) 03/13/18 05:45 BUN 9 mg/dL (7-18) 03/13/18 05:45 Creatinine 0.90 mg/dL (0.55-1.02) 03/13/18 05:45 Est GFR (MDRD) Af Amer > 60 (>60) 03/13/18 05:45 Est GFR (MDRD) Non-Af > 60 (>60) 03/13/18 05:45 Glucose 134 mg/dL (65-99) H 03/13/18 05:45 Lactic Acid 1.3 mmol/L (0.4-2.0) 03/09/18 09:40 Calcium 8.2 mg/dL (8.5-10.1) L 03/13/18 05:45 Corrected Calcium 9.3 mg/dL (8.5-10.1) 03/13/18 05:45 Magnesium 1.8 mg/dL (1.7-2.9) 03/10/18 05:20 Total Bilirubin 0.20 mg/dL (0.2-1.0) 03/13/18 05:45 AST 11 Units/L (15-37) L 03/13/18 05:45 ALT 21 Units/L (12-78) 03/13/18 05:45 Alkaline Phosphatase 103 Units/L (46-116) 03/13/18 05:45 Total Protein 6.6 g/dL (6.4-8.2) 03/13/18 05:45 Albumin 2.6 g/dL (3.4-5.0) L 03/13/18 05:45 Globulin 4.0 g/dL (2.5-4.5) 03/13/18 05:45 Albumin/Globulin Ratio 0.7 Ratio (1.1-2.1) L 03/13/18 05:45 Influenza Type A (PCR) Negative (NEGATIVE) 03/09/18 09:09 Influenza Type B (PCR) Negative (NEGATIVE) 03/09/18 09:09 S. pyogenes (TEM-PCR) Not detected (NOT DETECT) 03/09/18 09:09 - Plan (1) Pneumonia Status: Acute Qualifiers: Pneumonia type: due to unspecified organism Laterality: left Lung location: lower lobe of lung Qualified Code(s): J18.1 - Lobar pneumonia, unspecified organism Plan: PNEUMONIA PROTOCOL, LEVAQUIN IV, DUPHILLIP, DARRELIONEX, CONTINUE TO MONITOR
[2018-03-13] MEDS ORDERED: DILAUDID INJ IVP ONE (12:02)
[2018-03-13] MEDS ORDERED: DILAUDID INJ ONE (12:03)
--- NOTE | 2018-04-25 22:21 | DR.CARTERD ---
- Discharge Summary for: Discharge Summary for Date of:: 03/13/18 - Admission Date Date of Admission: 03/09/18 - Admission Diagnoses Admission Diagnosis: (1) Pneumonia - Discharge Date Discharge Date: 03/13/18 - Discharge Diagnoses Discharge Diagnosis: (1) Pneumonia - Hospital Course Hospital Course: DAY ONE, IS A 47 YEAR OLD PATIENT OF DR.RHONDA NOLAND WHO PRESENTED TO THE EMERGENCY ROOM WITH COMPLAINTS OF HURTING ALL OVER. PATIENT REPORTED THAT SHE HAS BEEN FEELING IF SHE WAS ABOUT TO HAVE A SEIZURE. SHE REPORTED PAIN TO THE NECK UP TO THE BACK OF HER MERVIN. ASSOCIATED SYMPTOMS INCLUDED SHORTNESS OF BREATH, NON-PRODUCTIVE COUGH, ABDOMINAL PAIN, AND NAUSEA. MEDICAL HISTORY INCLUDES ANXIETY, ARTHRITIS, DEPRESSION, HYPOTHYROIDISM, SEIZURES, MS, ADDISONS DISEASE, AND MYASTHENIA GRAVIS. ON ARRIVAL, VITALS WERE 103.1, 123-20-96%-126/70. LABS WERE OBTAINED. ABNORMAL LAB VALUES INCLUDE THE FOLLOWING: HGB 11.7, HCT 34.0, PLT COUNT 110, SODIUM 135, GLUCOSE 118, CALCIUM 8.2, AST 51, ALK PHOS 143, ALBUMIN 3.3. AN ABDOMEN/PELVIS CT WITHOUT CONTAST WAS OBTAINED AND REVEALED: Findings suggestive of acute infection involving left lung.Hypoattenuating structure along the anterior aspect of the right psoas inferiorly. This is nonspecific although most certainly benign given its near stability since 2010. Differential considerations are wide and include lymph node, lymphatic malformation or possibly peritoneal inclusion cyst as patient has had pelvic surgery in the past. Again, secondary to its stability, this is likely of little clinical significance. CHEST XRAY REVEALED: Streaky airspace opacities throughout the left lung concerning for infection. SHE WAS ADMITTED F OR FURTHER EVALUATION AND TREATMENT OF LEFT LOWER LOBE PNEUMONIA. SHE WAS STARTED ON THE PNEUMONIA PROTOCOL WITH LEVAQUIN 750MG IV DAILY AND RESPIRATORY TREATMENTS. WE FOLLOWED UP WITH AM LABS AND CHEST XRAY AND CONTINUED TO MONITOR PATIENT. DAY TWO, SHE WAS ALERT AND ORIENTED, LYING IN BED ON MORNING ROUNDS. SHE CONTINUED WITH COMPLAINTS OF WEAKNESS, COUGH, AND SHORTNESS OF BREATH. SHE ALSO REPORTED LOWER BACK PAIN. ON EXAMINATION, HEART WAS REGULAR IN RATE AND RHYTHM. BILATERAL LUNGS WERE NOTED WITH SCATTERED WHEEZING. ABDOMEN WAS ROUND, SOFT, AND NON-TENDER WITH NORMAL BOWEL SOUNDS NOTED IN ALL QUADRANTS. HER VITALS THIS MORNING WERE 99.3-93-22-97%-111/90. LABS WERE OBTAINED. ABNORMAL LAB VALUES INCLUDE THE FOLLOWING: RBC 2.98, HGB 9.7, HCT 28.1, PLT COUNT 83, POTASSIUM 3.4, GLUCOSE 111, CALCIUM 7.7, ALBUMIN 2.6. TODAYS CHEST XRAY REVEALED: Persistent infiltrate left lung most consistent with pneumonia. Asymmetric pulmonary edema is considered less likely. SHE WAS RECEIVING IV LEVAQUIN AND DUONEBS. WE CONTINUED WITH CURRENT PLAN OF CARE TODAY. WE FOLLOWED UP WITH AM LABS AND CONTINUED TO MONITOR PATIENT. DAY THREE, SHE WAS ALERT AND ORIENTED, LYING IN BED ON MORNING ROUNDS. SHE CONTINUED WITH COMPLAINTS OF WEAKNESS, COUGH, AND SHORTNESS OF BREATH. SHE ALSO REPORTED LOWER BACK PAIN AND NAUSEA. ON EXAMINATION, HEART WAS REGULAR IN RATE AND RHYTHM. BILATERAL LUNGS WERE NOTED W ITH SCATTERED WHEEZING. ABDOMEN WAS ROUND, SOFT, AND NON-TENDER WITH NORMAL BOWEL SOUNDS NOTED IN ALL QUADRANTS. HER VITALS THIS MORNING WERE [id number]%-116/56. SHE WAS RECEIVING IV LEVAQUIN AND DUONEBS. WE CONTINUED WITH CURRENT PLAN OF CARE TODAY AND STARTED PHENERGAN 25MG IM Q4H PRN NAUSEA AND RESUMED HOME MEDICATIONS. WE FOLLOWED UP WITH AM LABS AND CONTINUED TO MONITOR PATIENT. DAY FIVE. PATIENT SYMPTOMS IMPROVED. REPEAT CHEST X-RAY REVEALED: Resolution of the previously noted left lung infiltrate. CLEAR LUNG SOUNDS NOTED BILATERALLY. LAB VALUES ARE IN NORMAL RANGE FOR PATIENT. VITAL SIGNS ARE STABLE. WE PLANNED FOR DISCHARGE. INSTRUCTIONS FOR MEDICATIONS AND FOLLOW UP WERE DISCUSSED WITH PATIENT AND FAMILY, BOTH VOICED UNDERSTANDING. PATIENT DISCHARGED HOME IN STABLE CONDITION WITH FAMILY. - Discharge Medications Discharge Medications: Home Medication List carisoprodol 350 mg PO Q8H PRN 03/09/18 [History] oxycodone 10 mg PO Q6HR PRN 03/09/18 [History] oxymorphone 40 mg PO Q12H 03/09/18 [History] pregabalin [Lyrica] 75 mg PO TID 03/09/18 [History] rivaroxaban [Xarelto] 20 mg PO DAILY 03/09/18 [History] benzonatate [Tessalon Perles] 200 mg PO TID PRN #30 cap 03/13/18 [Rx] ipratropium-albuterol 3 ml INHALATION TID #50 units 03/13/18 [Rx] levofloxacin [Levaquin] 750 mg PO QDAY #10 tab 03/13/18 [Rx] Prescriptions: benzonatate [Tessalon Perles] Fabian Sainz ipratropium-albuterol Fabian Sainz levofloxacin [Levaquin] Fabian Sainz Ambulatory Orders albuterol sulfate [Ventolin HFA] 2 puff INH QID PRN 07/16/16 citalopram 20 mg PO DAILY 07/16/16 clonazepam 2 mg PO BID 07/16/16 estradiol 1 mg PO DAILY 07/16/16 levothyroxine 150 mcg PO DAILY 07/16/16 omeprazole 20 mg PO DAILY 07/16/16 tizanidine 4 mg PO TID PRN 07/16/16 - Discharge Disposition Discharge Disposition: PATIENT TO FOLLOW UP WITH PCP DR. NOLAND IN ONE WEEK.
== END 2018-03-13 12:50 | disposition home or self-care (01) | DRG 194 ==
LOC: MED/SURG 08:29 → ER 08:29 → OBSVTOIN 14:13 → MED/SURG 14:36
PROVIDERS: ADMIT Internal Medicine; ATTEND Internal Medicine
DX: F41.8 Other specified anxiety disorders; E27.1 Primary adrenocortical insufficiency; R06.02 Shortness of breath; R26.89 Other abnormalities of gait and mobility; M54.5 Low back pain; G35 Multiple sclerosis; R70.0 Elevated erythrocyte sedimentation rate; G40.89 Other seizures; R11.0 Nausea; R10.84 Generalized abdominal pain; G70.00 Myasthenia gravis without (acute) exacerbation; R53.1 Weakness; E03.8 Other specified hypothyroidism; M54.2 Cervicalgia; J18.8 Other pneumonia, unspecified organism
CPT/HCPCS: 36415; 71010; 71045; 74176; 80053; 83605; 83735; 84132; 85025; 85652; 87040; 87070; 87205; 87502; 87651; 94640; 94669; 94760; 96365; 96367; 96374; 96375; 97163; 97166; 99283; 99284; A4222; J1170; J1956; J2405; J2550; J7030; J7050; J7620

== ENCOUNTER 2019-01-27 04:57 | Observation (INO) ==
[2019-01-27 05:07] VITALS: BMI 27.4
[2019-01-27] MEDS ORDERED: SOLU-Medrol 125 MG VIAL IVP ONE (05:30)
[2019-01-27] MEDS ORDERED: DUONEB 0.5 MG/3 MG NEB ONE (05:30)
[2019-01-27] MEDS ORDERED: SOLU-Medrol 125 MG VIAL ONE (05:34)
--- NOTE | 2019-01-27 05:37 | DR.EXTPAIN ---
HPI - Time seen Time seen: 05:30 - PCP Primary Care Physician: FRANKLYN TAYLOR - Complaint/Symptoms Chief Complaint Doctor Comments: Patient is complaining of vomiting, fever, cough, SOB with problems breathing and wheezing for the past three days. States say her doctor ten days ago and he put her on amoxicillin and it is not helping. States she cannot keep anything down and she has been vomiting. She is a patient of Dr. Taylor and states she has Lupus. she denies tobacco or alcohol usage. She has been coughing up yellow sputum and has not been able to keep anything down for five days.. States her appetite is decreased and she has had a hysterectomy, gall bladder and appendix removed. She is complaining of hurting in her back on the right side. Chief Complaint:: PT STATED SHE FEELS LIKE SHE CAN'T BREATHE AND HAS SHARP PAIN IN HER R SIDE. PT STATED SHE HAS BEEN RUNNING A FEVER. PT STATED SHE HAS BEEN TAKING AMOXICILLIN FOR 5 DAYS. - Nurses notes reviewed Nurses Notes Review: Yes - Source History Provided: Patient - Mode of arrival Mode of Arrival: Ambulatory - Timing Onset of Chief Complaint: 01/22/19 - Context History of: Arthritis - Associated signs and symptoms Associated Signs and Symptoms: Abdominal Pain, Cough, Nausea, Shortness of Breath PMH - PMH Past Medical History: Yes Past Medical History: Depression, Anxiety, Hypothyroidism, Seizures, Arthritis Past Surgical History: Yes Surgical History: Appendectomy, Cholecystectomy, Hysterectomy - Family History History of Family Medical Conditions: Yes Family Medical History: Diabetes Mellitus, Cancer, [place], Coronary Artery Disease, Heart Failure, Hypertension - Social History Alcohol Use: None Do you use any recreational Drugs:: No - infectious screening Have you traveled outside the country in the last 6 months?: No ROS - Review of Systems Constitutional: No Symptoms Reported, Loss of Appetite Eyes: No Symptoms Reported ENTM: No Symptoms Reported Respiratoy: No Symptoms Reported, Productive Cough, Short of Breath, Wheezing Cardiovascular: No Symptoms Reported. negative: See HPI, Chest Pain, Edema, Palpitations, Syncope, Cyanosis, Skin Mottling, Other Gastrointestinal/Abdominal: No Symptoms Reported, Abdominal Pain, Nausea, Vomiting. negative: See HPI, Constipation, Diarrhea, Food Intolerance, Other Genitourinary: No Symptoms Reported Neurological: No Symptoms Reported Musculoskeletal: No Symptoms Reported, Back Pain Integumentary: No Symptoms Reported Hematologic/Lymphatic: No Symptoms Reported Endocrine: No Symptoms Reported Psychiatric: No Symptoms Reported. negative: See HPI, Anxiety, Depression, Vasquez llucinations, Excessive crying, Suicidal, Other PE - General Limitations: No Limitations General Appearance: Alert, In Distress (moderate) - Head Head Exam: Normal Inspection, Atraumatic, Normocephalic - Eyes Eye exam: Normal Appearance, PERRL, EOMI. negative: Scleral Icterus, Conjunctival Injection, Nystagmus, Miosis, Mydrasis, Periorbital Swelling, Periorbital Tenderness, Other - ENT ENT Exam: Normal Exam, Normal Oropharynx, Normal External Ear Exam, Mucous Membranes Moist (dentures), TM's Normal Bilaterally - Neck Neck Exam: Normal Inspection, Full ROM, Trachea Midline. negative: Tenderness, Meningismus, Lymphadenopathy, Thyromegaly, Other - Chest Chest Inspection: Normal Inspection, Symmetric Chest Wall Rise. negative: Tenderness, Rash, Abscess, Other - Respiratory Respiratory Exam: Prolonged Expiratory Phase Respiratory Exam: Bilateral Wheezing, Bilateral Rhonchi, Bilateral Decreased Breath Sounds - Cardiovascular Cardiovascular Exam: Regular Rate, Normal Rhythm, Normal Heart Sounds - Abdominal Exam Abdominal Exam: Normal Inspection, Normal Bowel Sounds, Soft, Tenderness (RUQ tenderness), Guarding, Dimnished Bowel Sounds Abdominal Tenderness: RUQ, Moderate - Extremities Extremities Exam: Normal Inspection, Full ROM, Normal Capillary Refill. negative: Tenderness, Edema, Joint Swelling, Calf Tenderness, Other - Upper Extremities Shoulder Exam: Normal Inspection, Full ROM. negative: Tenderness, Swelling, Abrasion, Laceration, Ecchymosis, Deformity, Crepitus, Dislocation, Erythema, Tenderness over AC Joint, Other Arm Exam: Normal Inspection, Full ROM. negative: Tenderness, Swelling, Abrasion, Laceration, Ecchymosis, Deformity, Crepitus, Erythema, Other Elbow Exam: Normal Inspection, Full ROM. negative: Tenderness, Swelling, Abrasion, Laceration, Ecchymosis, Deformity, Crepitus, Dislocation, Erythema, Effusion, Pain w/ pronation, Pain w/ Spuination, Tenderness over Radial Head, Other Forearm Exam: Normal Inspection, Full ROM. negative: Tenderness, Swelling, Abrasion, Laceration, Ecchymosis, Deformity, Crepitus, Erythema, Dislocation, Other Hand Exam: Normal Inspection, Full ROM. negative: Tenderness, Swelling, Abrasion, Laceration, Ecchymosis, Skin Avulsion, Deformity, Crepitus, Erythema, Dislocation, Amputation, Nail Avulsion, Subungual Hematoma, Other Neuromotor Exam: Normal Exam Neurosensory Exam: Normal Exam Hand Tendon Exam: Flexor Digitorium Profundus (Location) (normal) Upper Ext. Vascular Exam: Capillary Refill (normal) - Lower Extremities Hip/Pelvis Exam: Normal Inspection, Full ROM Upper Leg Exam: Normal Inspection, Full ROM Knee Exam: Normal Inspection, Full ROM, Crepitus Lower Leg Exam: Normal Inspection, Full ROM. negative: Tenderness, Swelling, Abrasion, Laceration, Deformity, Ecchymosis, Crepitus, Dislocation, Erythema, Palpable Cord, Homans' Sign, Achilles Tendon Intact, Other Ankle Exam: Normal Inspection, Full ROM. negative: Tenderness, Swelling, A brasion, Laceration, Ecchymosis, Deformity, Crepitus, Dislocation, Erythema, Tenderness over talofibular lig, Anterior Draw Sign, Other Foot/Toe Exam: Normal Inspection, Full ROM. negative: Tenderness, Swelling, Abrasion, Laceration, Ecchymosis, Deformity, Crepitus, Dislocation, Erythema, Amputation, Puncture Wound, Foreign Body, Calcaneal Tenderness, Nail Avulsion, Other Neurovascular/Tendon Exam: Normal Capillary Refill Gait Exam: Not Tested/Not Observed - Back Back Exam: Normal Inspection, Full ROM, Tenderness - Neurological Neurological Exam: Alert, Oriented X3, CN II-XII Intact, Reflexes Normal. negative: Normal Gait (gait not tested) - Psychiatric Psychiatric Exam: Normal Affect, Normal Mood - Skin Skin Exam: Warm, Dry, Intact, Normal Color Type of Lesion: negative: Rash, Abscess, Laceration, Foreign Body, Bite/Sting, Abrasion, Other Distribution: negative: Generalized, Involves Palms/Soles, Head, Face, Neck, Thorax, Chest, Back, Abdomen, Genitals, LUE, LLE, RUE, RLE, Other Description: negative: Size, Tenderness, Erythematous, Swelling, Macular, Papular, Vesicular, Blisters, Cofluent, Bullous, Petechial, Purpuric, Urticarial, Crusting, Discharge, Fluctuant, Indurated, Other - Vital Signs Vitals: Temperature 96.6 F Pulse Rate 92 Respiratory Rate 18 Blood Pressure [Left Calf] 140/66 Blood Pressure [Right Arm] 145/71 Blood Pressure [Left Arm] 118/62 Blood Pressure 121/59 O2 Sat by Pulse Oximetry 95 Course - Consultation Called: 07:15 Call Returned: 07:15 (Dr. Leigh to admit) - Education/Counseling Education/Counseling: Patient, Family Educated On: Treatment, Diagnosis, Needs for Follow Up ROR - Labs Reviewed Laboratory Results Reviewed?: Yes (All labs and x-ray results reviewed and discussed with patient) Result Diagrams: 01/27/19 05:41 01/27/19 06:00 - XRAY XRAY Interpreted by: Radiologist (CT abdomen and pelvis: No CT evidence of acute abdominal/pelvic pathology) XRAY Findings: CXR: No acute cardiopulmonary disease. - Labs Reviewed Laboratory: WBC 2.6 X10^3/uL (3.6-10.0) L 01/27/19 05:41 RBC 3.99 X10^6/uL (3.5-5.4) 01/27/19 05:41 Hgb 12.8 g/dL (12.0-16.0) 01/27/19 05:41 Hct 37.3 % (36.0-47.0) 01/27/19 05:41 MCV 93.3 fL (80.0-100.0) 01/27/19 05:41 MCH 32.1 pg (27.0-34.0) 01/27/19 05:41 MCHC 34.4 g/dL (33.0-35.0) 01/27/19 05:41 RDW 13.1 % (11.6-16.5) 01/27/19 05:41 Plt Count 191 X10^3/uL (150.0-450.0) 01/27/19 05:41 MPV 10.1 fL (7.4-11.0) 01/27/19 05:41 Neut % (Auto) 44.3 % (42.0-75.0) 01/27/19 05:41 Lymph % (Auto) 43.2 % (21.0-51.0) 01/27/19 05:41 [place] % (Auto) 11.1 % (0.0-13.0) 01/27/19 05:41 Eos % (Auto) 1.0 % (0.9-2.9) 01/27/19 05:41 Baso % (Auto) 0.4 % (0.2-1.0) 01/27/19 05:41 Neut # (Auto) 1.2 x10^3/uL (2.2-4.8) L 01/27/19 05:41 Lymph # (Auto) 1.1 X10^3/uL (1.3-2.9) L 01/27/19 05:41 [place] # (Auto) 0.3 x10^3/uL (0.3-0.8) 01/27/19 05:41 Eos # (Auto) 0.0 x10^3/uL (0.0-0.2) 01/27/19 05:41 Baso # (Auto) 0.0 X10^3/uL (0.0-0.1) 01/27/19 05:41 Absolute Nucleated RBC 0.5 /100WBC 01/27/19 05:41 Sodium 140 mmol/L (136-145) 01/27/19 06:00 Corrected Sodium TNP 01/27/19 06:00 Potassium 3.4 mmol/L (3.5-5.1) L 01/27/19 06:00 Chloride 104 mmol/L (98-107) 01/27/19 06:00 Carbon Dioxide 25.5 mmol/L (21-32) 01/27/19 06:00 BUN 13 mg/dL (7-18) 01/27/19 06:00 Creatinine 0.73 mg/dL (0.55-1.02) 01/27/19 06:00 Est GFR (MDRD) Af Amer > 60 (>60) 01/27/19 06:00 Est GFR (MDRD) Non-Af > 60 (>60) 01/27/19 06:00 Glucose 106 mg/dL (65-99) H 01/27/19 06:00 Calcium 8.3 mg/dL (8.5-10.1) L 01/27/19 06:00 Corrected Calcium 8.9 mg/dL (8.5-10.1) 01/27/19 06:00 Total Bilirubin 0.20 mg/dL (0.2-1.0) 01/27/19 06:00 AST 29 Units/L (15-37) 01/27/19 06:00 ALT 33 Units/L (12-78) 01/27/19 06:00 Alkaline Phosphatase 160 Units/L (46-116) H 01/27/19 06:00 Total Protein 6.8 g/dL (6.4-8.2) 01/27/19 06:00 Albumin 3.3 g/dL (3.4-5.0) L 01/27/19 06:00 Globulin 3.5 g/dL (2.5-4.5) 01/27/19 06:00 Albumin/Globulin Ratio 0.9 Ratio (1.1-2.1) L 01/27/19 06:00 Amylase 17 Units/L (25-115) L 01/27/19 06:00 Lipase 69 Units/L (73-393) L 01/27/19 06:00 Opioid - Opioid Risk Tool Total: 0 Total Score Risk Category: Low Risk - Diagnosis Discharge Problem: COPD with acute exacerbation, Bronchitis, Pulmonary nodule, left Neutropenia Qualifiers: Neutropenia type: unspecified Qualified Code(s): D70.9 - Neutropenia, unspecified Abdominal pain Qualifiers: Abdominal location: right upper quadrant Qualified Code(s): R10.11 - Right upper quadrant pain Emphysema of lung Qualifiers: Emphysema type: unspecified Qualified Code(s): J43.9 - Emphysema, unspecified - Discharge Plan Disposition: ADMITTED INPATIENT Condition: Stable - Follow ups/Referrals Follow ups/Referrals: Franklyn Taylor [Primary Care Provider] - 3 days - Instructions
[2019-01-27 05:49] LABS: BASOPHILS % (AUTO) 0.4 % (0.2-1.0); HEMATOCRIT 37.3 % (36.0-47.0); HEMOGLOBIN 12.8 g/dL (12.0-16.0); LYMPHOCYTES # (AUTO) 1.1 X10^3/uL (1.3-2.9); LYMPHOCYTES % (AUTO) 43.2 % (21.0-51.0); MEAN CORPUSCULAR HEMOGLOBIN 32.1 pg (27.0-34.0); MEAN CORPUSCULAR HGB CONC 34.4 g/dL (33.0-35.0); MEAN CORPUSCULAR VOLUME 93.3 fL (80.0-100.0); MEAN PLATELET VOLUME 10.1 fL (7.4-11.0); MONOCYTES # (AUTO) 0.3 x10^3/uL (0.3-0.8); MONOCYTES % (AUTO) 11.1 % (0.0-13.0); NEUTROPHILS # (AUTO) 1.2 x10^3/uL (2.2-4.8); NEUTROPHILS % (AUTO) 44.3 % (42.0-75.0); PLATELET COUNT 191 X10^3/uL (150.0-450.0); RED BLOOD COUNT 3.99 X10^6/uL (3.5-5.4); RED CELL DISTRIBUTION WIDTH 13.1 % (11.6-16.5); WHITE BLOOD COUNT 2.6 X10^3/uL (3.6-10.0)
[2019-01-27] MEDS ORDERED: SOLU-Medrol 125 MG VIAL IM ONE (06:13)
[2019-01-27 06:27] LABS: ALANINE AMINOTRANSFERASE 33 Units/L (12-78); ALBUMIN 3.3 g/dL (3.4-5.0); ALKALINE PHOSPHATASE 160 Units/L (46-116); AMYLASE 17 Units/L (25-115); ASPARTATE AMINO TRANSFERASE 29 Units/L (15-37); BLOOD UREA NITROGEN 13 mg/dL (7-18); CALCIUM 8.3 mg/dL (8.5-10.1); CARBON DIOXIDE 25.5 mmol/L (21-32); CHLORIDE 104 mmol/L (98-107); COR CA(FOR HYPOALB) 8.9 mg/dL (8.5-10.1); CREATININE 0.73 mg/dL (0.55-1.02); LIPASE 69 Units/L (73-393); SODIUM 140 mmol/L (136-145); TOTAL PROTEIN 6.8 g/dL (6.4-8.2); eGFR NON BLACK RACES > 60 (>60)
--- NOTE | 2019-01-27 06:38 | RAD ---
HISTORY: Coughing and wheezing. Study: Portable chest. Comparison: Chest x-ray dated December 31, 2018. Findings: The trachea is midline. The cardiac silhouette is unremarkable. Chronic emphysematous and interstitial lung changes. No obvious focal consolidation, pleural effusion, or pneumothorax. The bony thorax is unremarkable. IMPRESSION: No acute cardiopulmonary disease. Reported By:
--- NOTE | 2019-01-27 06:52 | CT ---
HISTORY: Right upper quadrant pain. Study: CT abdomen and pelvis without contrast Comparison: CT abdomen/pelvis dated March 09, 2018. Technique: Multiple axial images of the abdomen and pelvis were obtained from the lung bases to the pubic symphysis without the administration of IV contrast. Dose reduction techniques including Automated Exposure Control (AEC) and adjustment of mA and kV were utilized. Limited study secondary to lack of IV and oral contrast. Findings: Bibasilar scarring versus atelectasis. Stable appearing 4 mm pleural-based left lower lobe pulmonary nodule (series 3, image 12). Otherwise, the visualized portions of the lung bases are unremarkable. The gallbladder is surgically absent. The liver, spleen, pancreas, left kidney, and adrenal glands are unremarkable in their CT appearance. No significant mesenteric lymphadenopathy or stranding can be observed. No free fluid or free air is seen within the abdomen. Limited evaluation of the large and small bowel secondary to lack of oral contrast and collapse. The large and small bowel is otherwise unremarkable. The appendix is surgically absent. The uterus is surgically absent. No suspicious adnexal lesions. 2.2 cm nodule anterior to the right lower ileo psoas muscle appears unchanged given technique. The urinary bladder is grossly unremarkable. Nonspecific varicosities are seen within the soft tissues overlying the lower anterior pelvis. These appear unchanged given technique. Degenerative changes of the spine. No aggressive osseous lesions. IMPRESSION: 1. No CT evidence of acute abdominal/pelvic pathology. 2. Other chronic findings as above. Reported By:
[2019-01-27] MEDS ORDERED: PHENERGAN INJ 25 MG IM ONE ×2 (07:25→10:23)
[2019-01-27 07:48] LABS: BASOPHILS % (AUTO) 0.4 % (0.2-1.0); EOSINOPHILS % (AUTO) 0.5 % (0.9-2.9); HEMATOCRIT 36.5 % (36.0-47.0); HEMOGLOBIN 12.5 g/dL (12.0-16.0); LYMPHOCYTES # (AUTO) 0.8 X10^3/uL (1.3-2.9); LYMPHOCYTES % (AUTO) 25.7 % (21.0-51.0); MEAN CORPUSCULAR HEMOGLOBIN 31.9 pg (27.0-34.0); MEAN CORPUSCULAR HGB CONC 34.3 g/dL (33.0-35.0); MEAN PLATELET VOLUME 9.2 fL (7.4-11.0); MONOCYTES # (AUTO) 0.2 x10^3/uL (0.3-0.8); MONOCYTES % (AUTO) 6.6 % (0.0-13.0); NEUTROPHILS % (AUTO) 66.8 % (42.0-75.0); PLATELET COUNT 121 X10^3/uL (150.0-450.0); RED BLOOD COUNT 3.92 X10^6/uL (3.5-5.4); RED CELL DISTRIBUTION WIDTH 13.1 % (11.6-16.5)
[2019-01-27] MEDS ORDERED: NS 1000 ML 1,000 ML IV SCH (08:00)
[2019-01-27] MEDS: DUONEB 0.5 MG/3 MG NEB SCH ×4 (08:48→21:15)
[2019-01-27] MEDS ORDERED: LEVAQUIN PREMIX IV 500 MG 500 MG/100 ML BAG IV SCH (09:00)
[2019-01-27] MEDS ORDERED: SYNTHROID 150 mcg TAB PO SCH (09:00)
--- NOTE | 2019-01-27 11:22 | DR.H&P ---
H&P - History & Physical for Day of: H&P Date: 01/27/19 - Chief Complaint Chief Complaint: SOB, RIGHT SIDE PAIN, FEVER - History of Present Illness History of Present Illness: PT IS 48 WF ER ADMISSION AFTER PRESENTINT WITH CO PT STATED SHE FEELS LIKE SHE CAN'T BREATHE AND HAS SHARP PAIN IN HER R SIDE. PT STATED SHE HAS BEEN RUNNING A FEVER. PT STATED SHE HAS BEEN TAKING AMOXICILLIN FOR 5 DAYS. PT HAD CXR IN ER W/O ACUTE FINDINGS. PT HAS PMH OF Mitral Valve Prolapse, Pulmonary Embolism, Gall Bladder Disease, Urinary Tract Infections, Fibromyalgia, Rheumatoid Arthritis, Sharkey's Disease, Lupus, Cervical Cancer. PT ADMITTED FOR COPD EXACERBATION. - Past Medical History Past Medical History: Depression, Anxiety, Hypothyroidism, Seizures, Arthritis Additional Medical History: Mitral Valve Prolapse, Pulmonary Embolism, Gall Bladder Disease, Urinary Tract Infections, Fibromyalgia, Rheumatoid Arthritis, Jim's Disease, Lupus, Cervical Cancer - Past Surgical History Surgical History: Appendectomy, Cholecystectomy, Hysterectomy Additional Surgical History: Port-a-cath - Family History Family Medical History: Diabetes Mellitus, Cancer, [place], Coronary Artery Disease, Heart Failure, Hypertension - Social History Does patient currently use any type of tobacco product: No Have you used tobacco products in the last 12 months: No Type of Tobacco Use: None Alcohol Use: None - Medications Home Medications: acetaminophen [From Percocet] Allergy (Verified 01/15/18 13:32) aspirin Allergy (Verified 01/15/18 13:32) codeine Allergy (Verified 01/15/18 13:32) ibuprofen [From Motrin] Allergy (Verified 01/15/18 13:32) ketorolac [From Toradol] Allergy (Verified 01/15/18 13:32) lidocaine Allergy (Verified 01/15/18 13:32) meperidine [From Demerol] Allergy (Verified 01/15/18 13:32) metoclopramide [From Reglan] Allergy (Verified 01/15/18 13:32) morphine Allergy (Verified 01/15/18 13:32) nalbuphine [From Nubain] Allergy (Verified 01/15/18 13:32) naloxone [From Narcan] Allergy (Verified 01/15/18 13:32) naproxen Allergy (Verified 01/15/18 13:32) oxycodone [From Percocet] Allergy (Verified 01/15/18 13:32) penicillin G Allergy (Verified 01/15/18 13:32) Sulfa (Sulfonamide Antibiotics) Allergy (Verified 01/15/18 13:32) macrolides and ketolides Allergy (Uncoded 01/15/18 13:32) - Review of Systems Constitutional: Fever, Weakness Eyes: No Symptoms Reported ENT: No Symptoms Reported Respiratory: Cough, Shortness of Breath, SOB with Excertion, Wheezing Cardiovascular: No Symptoms Reported Gastrointestinal: Nausea Genitourinary: No Symptoms Reported Musculoskeletal: No Symptoms Reported Skin: No Symptoms Reported Neurological: No Symptoms Reported - Physical Exam Vital Signs: Temperature 99.8 F Pulse Rate [Left Brachial] 97 Pulse Rate 89 Respiratory Rate 17 Blood Pressure [Left Calf] 140/66 Blood Pressure [Right Arm] 145/71 Blood Pressure [Left Arm] 145/75 Blood Pressure 121/59 O2 Sat by Pulse Oximetry 95 Oriented: Normal Eyes: Normal Ear: Normal Nose: Normal Throat: Normal Respiratory: RLL Diminished, LLL Diminished Cardiovascular: Normal : Normal Auscultation: Bowel Sounds: Normal Palpation: Normal Tenderness: Normal Skin: Decreased Turgur Musculoskeletal: Back:Thoracic, Back:Lumbar Psychiatric: Anxiety Affect: Anxious Speech Pattern: Clear, Appropriate - Assessment/Plan (1) COPD with acute exacerbation Status: Acute Plan: ADMIT, CXR ON ADMISSION. RESP CONSULT, IV ATBX, IV HYDRATION. SUPPLEMENTAL O2, SPUTUM CULTURE. VERIFY HOME MEDICATION (2) Sharkey's disease Status: Chronic (3) Hypothyroidism Status: Chronic (4) Fibromyalgia Status: Chronic (5) Rheumatoid arthritis Status: Chronic (6) Reactive airway disease Qualifiers: Asthma severity: unspecified severity Asthma complication type: uncomplicated Qualified Code(s): J45.909 - Unspecified asthma, uncomplicated Status: Acute - Allergies Allergies/Adverse Reactions: Allergies Allergy/AdvReac Type Severity Reaction Status Date / Time acetaminophen [From Percocet] Allergy Verified 01/15/18 13:32 aspirin Allergy Verified 01/15/18 13:32 codeine Allergy Verified 01/15/18 13:32 ibuprofen [From Motrin] Allergy Verified 01/15/18 13:32 ketorolac [From Toradol] Allergy Verified 01/15/18 13:32 lidocaine Allergy Verified 01/15/18 13:32 meperidine [From Demerol] Allergy Verified 01/15/18 13:32 metoclopramide [From Reglan] Allergy Verified 01/15/18 13:32 morphine Allergy Verified 01/15/18 13:32 nalbuphine [From Nubain] Allergy Verified 01/15/18 13:32 naloxone [From Narcan] Allergy Verified 01/15/18 13:32 naproxen Allergy Verified 01/15/18 13:32 oxycodone [From Percocet] Allergy Verified 01/15/18 13:32 penicillin G Allergy Verified 01/15/18 13:32 Sulfa (Sulfonamide Allergy Verified 01/15/18 13:32 Antibiotics) macrolides and ketolides Allergy Uncoded 01/15/18 13:32
[2019-01-27 12:19] LABS: ABG BASE EXCESS 4.1 mmol/L (-2.0-2.0); ABG HCO3 28.5 mmol/L (22-26)
[2019-01-27 12:57] LABS: BILIRUBIN,URINE NEGATIVE (NEGATIVE); BLOOD/HEMOGLOBIN,URINE 3+ (NEGATIVE); GLUCOSE, URINE NEGATIVE (NEGATIVE); KETONES,URINE NEGATIVE (NEGATIVE); LEUKOCYTE ESTERASE ,URINE NEGATIVE (NEGATIVE); NITRITES,URINE NEGATIVE (NEGATIVE); PH,URINE 6.5 (5.0 - 8.0); PROTEIN,URINE 1+ (NEGATIVE); UROBILINOGEN,URINE NORMAL (NORMAL)
[2019-01-27 13:08] LABS: APPEARANCE,URINE CLEAR (CLEAR); COLOR,URINE YELLOW (YELLOW); SQUAMOUS EPITHELIAL CELL,UR MODERATE /HPF (NEGATIVE)
[2019-01-27 13:09] LABS: BACTERIA,URINE NEGATIVE /HPF (NEGATIVE); MUCUS,URINE MODERATE /HPF (NEGATIVE)
[2019-01-27] MEDS ORDERED: DILAUDID INJ ONE ×2 (13:18→14:21)
[2019-01-27] MEDS ORDERED: DILAUDID INJ IVP ONE ×2 (13:19→14:21)
[2019-01-27] MEDS ORDERED: ZOFRAN INJ 4 MG VIAL ONE (14:08)
[2019-01-27] MEDS ORDERED: ZOFRAN INJ 4 MG VIAL IVP ONE (14:42)
[2019-01-27] MEDS ORDERED: NS 1000 ML 1,000 ML ONE (15:46)
[2019-01-27] MEDS ORDERED: LEVAQUIN PREMIX IV 500 MG 500 MG/100 ML BAG IV ONE (15:46)
[2019-01-27] MEDS ORDERED: LEVAQUIN TAB 500 MG ONE (16:36)
[2019-01-27] MEDS ORDERED: XARELTO ONE (16:36)
[2019-01-27] MEDS: XARELTO PO SCH (16:45)
[2019-01-27] MEDS ORDERED: LEVAQUIN TAB 500 MG PO SCH (17:00)
[2019-01-27] MEDS ORDERED: KLONOPIN TAB 1 MG ONE (17:27)
[2019-01-27] MEDS ORDERED: ROXICODONE TAB 5 MG PO PRN (17:32)
[2019-01-27] MEDS ORDERED: SOMA TAB 350 MG PO ONE (17:35)
[2019-01-27] MEDS ORDERED: ROXICODONE TAB 5 MG PO ONE (17:35)
[2019-01-27] MEDS: KLONOPIN TAB 1 MG PO SCH ×2 (17:39→21:06)
[2019-01-27] MEDS: SOMA TAB 350 MG PO PRN (17:40)
--- NOTE | 2019-01-27 18:43 | RAD ---
HISTORY: Chest pain Study: AP chest. Comparison: 01/27/2019 Findings: Lungs are hyperexpanded suggesting generalized air trapping and possible COPD in the appropriate clinical setting. The lungs are clear. No consolidation. There are no pleural effusions. The wes and cardiomediastinal silhouette appear normal. IMPRESSION: 1. Hyperexpansion suggesting generalized air trapping and possible COPD in the appropriate clinical setting.. Lungs appear clear. Reported By:
[2019-01-27] MEDS: ZOFRAN SYRUP 4 MG UDC PO PRN (21:05)
[2019-01-27] MEDS: SOLU-Medrol 40 MG VIAL IM SCH (21:05)
[2019-01-27] MEDS ORDERED: POTASSIUM CHLORIDE LIQ 20 MEQ UDC PO PRN (21:51)
[2019-01-27] MEDS ORDERED: MICRO K EXTEN CAP 10 MEQ PO PRN (21:51)
[2019-01-27] MEDS ORDERED: POTASSIUM CHL 60 MEQ/NS 0.45% 500 ML IV PRN (21:51)
[2019-01-27] MEDS ORDERED: K-RIDER 10 MEQ/NS 100 ML 10 MEQ/100 ML BAG IV PRN (21:51)
[2019-01-27] MEDS ORDERED: K-DUR TAB 20 MEQ PO PRN (21:51)
[2019-01-27] MEDS ORDERED: POTASSIUM CHL 40 MEQ/NS 0.45% 500 ML IV PRN (21:51)
[2019-01-27] MEDS ORDERED: KLOR-CON PO PRN (21:51)
[2019-01-27] MEDS ORDERED: SOLU-Medrol 40 MG VIAL IVP SCH (22:00)
[2019-01-27] MEDS: MAG-OX TAB PO SCH (22:53)
[2019-01-28] MEDS: DUONEB 0.5 MG/3 MG NEB SCH ×4 (00:38→12:11)
[2019-01-28] MEDS: ZOFRAN SYRUP 4 MG UDC PO PRN (03:12)
[2019-01-28] MEDS: SOMA TAB 350 MG PO PRN (03:13)
[2019-01-28] MEDS: SOLU-Medrol 40 MG VIAL IM SCH (05:18)
[2019-01-28 05:35] LABS: BASOPHILS % (AUTO) 0.1 % (0.2-1.0); HEMATOCRIT 30.9 % (36.0-47.0); HEMOGLOBIN 10.7 g/dL (12.0-16.0); LYMPHOCYTES # (AUTO) 0.4 X10^3/uL (1.3-2.9); LYMPHOCYTES % (AUTO) 13.1 % (21.0-51.0); MEAN CORPUSCULAR HGB CONC 34.5 g/dL (33.0-35.0); MEAN CORPUSCULAR VOLUME 92.8 fL (80.0-100.0); MEAN PLATELET VOLUME 10.7 fL (7.4-11.0); MONOCYTES # (AUTO) 0.2 x10^3/uL (0.3-0.8); MONOCYTES % (AUTO) 6.4 % (0.0-13.0); NEUTROPHILS # (AUTO) 2.3 x10^3/uL (2.2-4.8); NEUTROPHILS % (AUTO) 80.4 % (42.0-75.0); PLATELET COUNT 118 X10^3/uL (150.0-450.0); RED BLOOD COUNT 3.33 X10^6/uL (3.5-5.4); RED CELL DISTRIBUTION WIDTH 13.1 % (11.6-16.5); WHITE BLOOD COUNT 2.9 X10^3/uL (3.6-10.0)
[2019-01-28 06:00] LABS: BLOOD UREA NITROGEN 13 mg/dL (7-18); CALCIUM 8.8 mg/dL (8.5-10.1); CARBON DIOXIDE 25.5 mmol/L (21-32); CHLORIDE 98 mmol/L (98-107); COR NA(FOR HYPERGLY) 136 mmol/L (136-145); CREATININE 0.87 mg/dL (0.55-1.02); MAGNESIUM 1.9 mg/dL (1.7-2.9); SODIUM 134 mmol/L (136-145); eGFR NON BLACK RACES > 60 (>60)
--- NOTE | 2019-01-28 07:35 | RAD ---
HISTORY: Respiratory distress Study: Chest AP portable Comparison: 01/27/2019 Findings: The heart is within normal limits in size. The wes are normal. The lungs are well inflated and free of acute alveolar infiltrates. No pleural effusions are identified. The bony thorax is unremarkable. IMPRESSION: Lungs clear Reported By:
[2019-01-28] MEDS ORDERED: KLONOPIN TAB 1 MG PO PRN (08:23)
[2019-01-28] MEDS ORDERED: PriLOSEC PO SCH (09:00)
[2019-01-28] MEDS ORDERED: SOLU-Medrol 40 MG VIAL IVP SCH (09:00)
[2019-01-28] MEDS ORDERED: ESTRACE PO SCH (09:00)
[2019-01-28] MEDS ORDERED: CELEXA PO SCH (09:00)
[2019-01-28] MEDS: ROBITUSSIN DM PO SCH ×3 (10:00→16:15)
[2019-01-28] MEDS: MAG-OX TAB PO SCH (13:00)
[2019-01-28] MEDS: XARELTO PO SCH (13:00)
[2019-01-28] MEDS ORDERED: SOLU-Medrol 40 MG VIAL IV SCH (13:23)
[2019-01-28] MEDS ORDERED: ZOFRAN INJ 4 MG VIAL IVP PRN (13:24)
[2019-01-28] MEDS ORDERED: PULMICORT NEB TX 0.5 MG NEB SCH (13:30)
--- NOTE | 2019-01-28 13:30 | PCM.PROG ---
Progress Note - Progress Note for Day of Date of Exam: 01/28/19 - Subjective Subjective: 48 WF ER ADMISSION WITH COPD EXACERBATION, FAILED OUTPT THERAPY. PT CO FEVER WITH CCC, N/V. PT HAS POOR VASCULAR ACCESS, DR MONTES CONSULTED FOR CENTRAL LINE PLACEMENT. PT CXR WNL, PT ENCOURAGED TO PRODUCE SPUTUM SPECIMEN AND ENCOURAGED ORAL HYDRATION. PT IS CURRENTLY ON LEVAQUIN AND SOLU MEDROL. PT HAD BC X1 ON ADMISSION WITH GROWTH REPORTED, REPEAT CULTURES ORDERED. PT HAS HX HIGH OPIOID USE, WE DECREASED CURRENT REGIMEN DUE TO RESP CO OF SOB AND HYPOXIA ON ABG DUE TO INCIDENCE OF INCREASED RESP SUPPRESSION. - Past Medical Family Social History Past Med/Fam/Surg Hx: No changes since H&P Allergies: Allergies acetaminophen [From Percocet] Allergy (Verified 01/15/18 13:32) aspirin Allergy (Verified 01/15/18 13:32) codeine Allergy (Verified 01/15/18 13:32) ibuprofen [From Motrin] Allergy (Verified 01/15/18 13:32) ketorolac [From Toradol] Allergy (Verified 01/15/18 13:32) lidocaine Allergy (Verified 01/15/18 13:32) meperidine [From Demerol] Allergy (Verified 01/15/18 13:32) metoclopramide [From Reglan] Allergy (Verified 01/15/18 13:32) morphine Allergy (Verified 01/15/18 13:32) nalbuphine [From Nubain] Allergy (Verified 01/15/18 13:32) naloxone [From Narcan] Allergy (Verified 01/15/18 13:32) naproxen Allergy (Verified 01/15/18 13:32) oxycodone [From Percocet] Allergy (Verified 01/15/18 13:32) penicillin G Allergy (Verified 01/15/18 13:32) Sulfa (Sulfonamide Antibiotics) Allergy (Verified 01/15/18 13:32) macrolides and ketolides Allergy (Uncoded 01/15/18 13:32) - Review of Systems ROS: No change since H&P - Vital Signs and I&O's Vital Signs: Temperature 99.1 F Pulse Rate [Left Brachial] 95 Pulse Rate 74 Respiratory Rate 20 Blood Pressure [Left Calf] 93/69 Blood Pressure [Right Arm] 145/71 Blood Pressure [Left Arm] 105/53 Blood Pressure 121/59 O2 Sat by Pulse Oximetry 94 Intake and Output: Intake & Output 01/26/19 01/27/19 01/28/19 01/29/19 11:59 11:59 11:59 11:59 Intake Total 1040 / 1040 Balance 1040 / 1040 - Physical Exam Oriented: Normal Eyes: Normal Ear: Normal Nose: Normal Throat: Normal Respiratory: Diminished, Wheezes, Rhonchi Cardiovascular: Normal : Normal Auscultation: Bowel Sounds: Normal Tenderness: Normal Skin: Decreased Turgur Musculoskeletal: Back:Thoracic, Back:Lumbar Psychiatric: Anxiety Affect: Anxious Speech Pattern: Clear, Appropriate - Laboratory and Diagnostics Result Diagrams: 01/28/19 02:11 01/28/19 02:11 Labs: 01/27/19 12:05 Sputum - Expectorated Sputum Sputum Culture - Preliminary 01/27/19 12:05 Sputum - Expectorated Sputum - Final 01/27/19 07:35 Blood Blood Culture - Preliminary Laboratory WBC 2.9 X10^3/uL (3.6-10.0) L 01/28/19 02:11 RBC 3.33 X10^6/uL (3.5-5.4) L 01/28/19 02:11 Hgb 10.7 g/dL (12.0-16.0) L 01/28/19 02:11 Hct 30.9 % (36.0-47.0) L 01/28/19 02:11 MCV 92.8 fL (80.0-100.0) 01/28/19 02:11 MCH 32.0 pg (27.0-34.0) 01/28/19 02:11 MCHC 34.5 g/dL (33.0-35.0) 01/28/19 02:11 RDW 13.1 % (11.6-16.5) 01/28/19 02:11 Plt Count 118 X10^3/uL (150.0-450.0) L 01/28/19 02:11 MPV 10.7 fL (7.4-11.0) 01/28/19 02:11 Neut % (Auto) 80.4 % (42.0-75.0) H 01/28/19 02:11 Lymph % (Auto) 13.1 % (21.0-51.0) L 01/28/19 02:11 [place] % (Auto) 6.4 % (0.0-13.0) 01/28/19 02:11 Eos % (Auto) 0.0 % (0.9-2.9) L 01/28/19 02:11 Baso % (Auto) 0.1 % (0.2-1.0) L 01/28/19 02:11 Neut # (Auto) 2.3 x10^3/uL (2.2-4.8) 01/28/19 02:11 Lymph # (Auto) 0.4 X10^3/uL (1.3-2.9) L 01/28/19 02:11 [place] # (Auto) 0.2 x10^3/uL (0.3-0.8) L 01/28/19 02:11 Eos # (Auto) 0.0 x10^3/uL (0.0-0.2) 01/28/19 02:11 Baso # (Auto) 0.0 X10^3/uL (0.0-0.1) 01/28/19 02:11 Absolute Nucleated RBC 0.0 /100WBC 01/28/19 02:11 Sample Site Right brachial 01/27/19 12:13 ABG pH 7.450 (7.35-7.45) 01/27/19 12:13 ABG pCO2 41.0 mmHg (35.0-45.0) 01/27/19 12:13 ABG pO2 70.0 mmHg (80.0-100.0) L 01/27/19 12:13 ABG HCO3 28.5 mmol/L (22-26) H 01/27/19 12:13 ABG O2 Saturation 95.0 % (90-100) 01/27/19 12:13 ABG Base Excess 4.1 mmol/L (-2.0-2.0) H 01/27/19 12:13 [place]as Test Na 01/27/19 12:13 A-a Gradient 28.0 mmHg 01/27/19 12:13 FiO2 21.0 01/27/19 12:13 Blood Gas Comments Wesley well aw 01/27/19 12:13 Sodium 134 mmol/L (136-145) L 01/28/19 02:11 Corrected Sodium 136 mmol/L (136-145) 01/28/19 02:11 Potassium 4.0 mmol/L (3.5-5.1) 01/28/19 02:11 Chloride 98 mmol/L (98-107) 01/28/19 02:11 Carbon Dioxide 25.5 mmol/L (21-32) 01/28/19 02:11 BUN 13 mg/dL (7-18) 01/28/19 02:11 Creatinine 0.87 mg/dL (0.55-1.02) 01/28/19 02:11 Est GFR (MDRD) Af Amer > 60 (>60) 01/28/19 02:11 Est GFR (MDRD) Non-Af > 60 (>60) 01/28/19 02:11 Glucose 194 mg/dL (65-99) H 01/28/19 02:11 Calcium 8.8 mg/dL (8.5-10.1) 01/28/19 02:11 Corrected Calcium 8.9 mg/dL (8.5-10.1) 01/27/19 06:00 Magnesium 1.9 mg/dL (1.7-2.9) 01/28/19 02:11 Total Bilirubin 0.20 mg/dL (0.2-1.0) 01/27/19 06:00 AST 29 Units/L (15-37) 01/27/19 06:00 ALT 33 Units/L (12-78) 01/27/19 06:00 Alkaline Phosphatase 160 Units/L (46-116) H 01/27/19 06:00 Total Protein 6.8 g/dL (6.4-8.2) 01/27/19 06:00 Albumin 3.3 g/dL (3.4-5.0) L 01/27/19 06:00 Globulin 3.5 g/dL (2.5-4.5) 01/27/19 06:00 Albumin/Globulin Ratio 0.9 Ratio (1.1-2.1) L 01/27/19 06:00 Amylase 17 Units/L (25-115) L 01/27/19 06:00 Lipase 69 Units/L (73-393) L 01/27/19 06:00 Specimen Type Clean catch urine 01/27/19 12:45 Urine Color Yellow (YELLOW) 01/27/19 12:45 Urine Appearance Clear (CLEAR) 01/27/19 12:45 Urine pH 6.5 (5.0 - 8.0) 01/27/19 12:45 Ur Specific [place] 1.015 (1.000-1.030) 01/27/19 12:45 Urine Protein 1+ (NEGATIVE) 01/27/19 12:45 Urine Glucose (UA) Negative (NEGATIVE) 01/27/19 12:45 Urine Ketones Negative (NEGATIVE) 01/27/19 12:45 Urine Occult Blood 3+ (NEGATIVE) 01/27/19 12:45 Urine Nitrite Negative (NEGATIVE) 01/27/19 12:45 Urine Bilirubin Negative (NEGATIVE) 01/27/19 12:45 Urine Urobilinogen Normal (NORMAL) 01/27/19 12:45 Ur Leukocyte Esterase Negative (NEGATIVE) 01/27/19 12:45 Urine RBC 10-20 /HPF (0-3) A 01/27/19 12:45 Urine WBC None seen /HPF (0-5) 01/27/19 12:45 Ur Squamous Epith Cells Moderate /HPF (NEGATIVE) 01/27/19 12:45 Urine Bacteria Negative /HPF (NEGATIVE) 01/27/19 12:45 Urine Mucus Moderate /HPF (NEGATIVE) 01/27/19 12:45 Ur Culture Indicated? No/not indicated 01/27/19 12:45 - Plan (1) COPD with acute exacerbation Status: Acute Plan: CXR ON AM. RESP CONSULT, IV ATBX, IV HYDRATION. SUPPLEMENTAL O2, SPUTUM CULTURE. VERIFY HOME MEDICATION (2) Jim's disease Status: Chronic (3) Hypothyroidism Status: Chronic (4) Fibromyalgia Status: Chronic (5) Rheumatoid arthritis Status: Chronic (6) Reactive airway disease Status: Acute Qualifiers: Asthma severity: unspecified severity Asthma complication type: uncomplicated Qualified Code(s): J45.909 - Unspecified asthma, uncomplicated
[2019-01-28] MEDS ORDERED: NS 1000 ML 1,000 ML IV SCH (14:00)
[2019-01-28 16:45] VITALS: BP 105/57
[2019-01-28] MEDS ORDERED: MUCOMYST 20% 200 MG/ML NEB SCH (17:00)
[2019-01-28] MEDS ORDERED: DUONEB 0.5 MG/3 MG NEB SCH (18:00)
[2019-01-29] MEDS ORDERED: LEVAQUIN PREMIX IV 500 MG 500 MG/100 ML BAG IV SCH (09:00)
== END 2019-01-28 16:40 | disposition left against medical advice (07) ==
LOC: MED/SURG 04:57 → ER 04:57 → MED/SURG 16:03
PROVIDERS: ADMIT Internal Medicine; ATTEND Internal Medicine
DX: I87.2 Venous insufficiency (chronic) (peripheral); R10.11 Right upper quadrant pain; J44.1 Chronic obstructive pulmonary disease with (acute) exacerbation; D70.9 Neutropenia, unspecified; R91.1 Solitary pulmonary nodule; E03.8 Other specified hypothyroidism; M79.7 Fibromyalgia; M06.9 Rheumatoid arthritis, unspecified; E27.1 Primary adrenocortical insufficiency; M32.9 Systemic lupus erythematosus, unspecified; B95.7 Other staphylococcus as the cause of diseases classified elsewhere; J45.909 Unspecified asthma, uncomplicated; J20.8 Acute bronchitis due to other specified organisms
CPT/HCPCS: 36415; 36556; 36600; 71010; 71020; 71045; 71046; 74176; 76000; 80048; 80053; 81001; 82150; 82803; 83690; 83735; 85025; 87040; 87070; 87077; 87186; 87205; 93005; 94640; 94760; 96365; 96372; 96374; 96375; 99284; A4216; A4222; G0378; J1170; J1956; J2405; J2550; J2920; J2930; J7030; J7620; Q0162; S0119